=== PATIENT | male | born 1970 | race Caucasian/White ===

== ENCOUNTER 2019-11-03 13:27 | Outpatient (CLI) | payer OTHER, SELFPAY ==
--- NOTE | 2019-11-03 13:29 | ECG_ITS ---
Measurements Intervals [place] Rate: 49 P: 30 UT: 167 QRS: 0 QRSD: 98 T: 1 QT: 431 QTc: 391 Interpretive Statements SINUS BRADYCARDIA ABNORMAL ECG Electronically Signed On 11-03-2019 15:46:22 CDT by Martín Liu D.O.
[2019-11-03 14:41] LABS: Blood Urea Nitrogen 17 mg/dL (9-20); Carbon Dioxide 27 mmol/L (22-30); Chloride 106 mmol/L (98-107); Estimated Glomerular Filt Rate > 60; Glucose 114 mg/dL (75-110); Potassium 4.1 mmol/L (3.4-5.0); Sodium 139 mmol/L (137-145)
== END 2019-11-03 13:28 | disposition home or self-care (01) ==
PROVIDERS: PCP Family Medicine; Visit Provider Nurse Practitioner Family
DX: R00.2 Palpitations (principal); R94.31 Abnormal electrocardiogram [ECG] [EKG]
CPT/HCPCS: 36415; 80048; 84443; 93005

== ENCOUNTER 2019-11-16 14:08 | Outpatient (CLI) | payer OTHER, SELFPAY ==
--- NOTE | 2019-11-21 12:13 | WPDHOLTEREM ---
Holter/Event Monitor Holter/Event Monitor Date of procedure: 11/16/19 Procedure Type: 24 hour holter monitor Indications: Bradycardia Conclusion: 1. 24 hour holter monitor on 11/16/19. 2. Underlying rhythm is sinus rhythm. HR range 44-105 bpm; average HR 61 bpm. 3. There are 13 premature supraventricular complexes. No supraventricular tachycardia. 4. There are 5 premature ventricular complexes. No ventricular tachycardia. 5. No sinoatrial or atrioventricular blocks. No significant pauses greater than 2 seconds. 6. Patient report chest tightness which demonstrate sinus rhythm at 76 bpm.
== END 2019-11-16 14:09 | disposition home or self-care (01) ==
PROVIDERS: PCP Family Medicine; Visit Provider Nurse Practitioner Family
DX: R00.1 Bradycardia, unspecified (principal)
CPT/HCPCS: 93225; 93226

== ENCOUNTER 2020-02-09 08:52 | Outpatient (CLI) | payer OTHER, SELFPAY ==
--- NOTE | ~2020-02-09 | US_ITS ---
EXAMINATION: US abdomen complete EXAM DATE: 02/09/2020 09:48 INDICATION: Shortness of breath and pain. TECHNIQUE: Multiple grayscale and Doppler images of the complete abdomen were obtained (by a technolo gist who performed the scan) and subsequently reviewed. There is no prior study for comparison. FINDINGS: The abdominal aorta is normal in caliber. Visualized portion IVC is patent. The pancreatic head a nd body are normal in appearance. The pancreatic tail is not visualized. The liver has normal echogenicity and contour. There are no focal liver lesions identified. There is no evidence of intrahepatic biliary duct dilation. Portal venous flow was seen in the hepatopedal , normal direction and has normal Doppler waveform. Common bile duct measures 3 mm, which is normal. The gallbladder wall is normal in thickness, with ex pected amount of distention. No sonographic evidence of pericholecystic fluid. There is no cholelit hiases. Technologist performing exam reports patient did not demonstrate sonographic Guerrero's sign. Please note that this sign is less reliable in patients who have received pain medication. Right kidney: There is normal contour and echogenicity. It measures 11.0 x 4.9 x 5.1 centimeters. There are no focal renal lesions identified. There is no hydronephrosis. Left kidney: There is normal contour and echogenicity. It measures 11.0 x 4.4 x 6.0 centimeters. T here are no focal renal lesions identified. There is no hydronephrosis. The spleen measures 12.1 centimeters and is morphologically normal. IMPRESSION: 1. Unremarkable complete abdominal ultrasound exam. Reviewed, dictated and finalized at location B.
== END 2020-02-09 08:53 | disposition home or self-care (01) ==
PROVIDERS: PCP Family Medicine; Visit Provider Nurse Practitioner Family
DX: K30 Functional dyspepsia (principal); R06.02 Shortness of breath; R10.9 Unspecified abdominal pain; R14.2 Eructation
CPT/HCPCS: 76700

== ENCOUNTER 2020-02-18 01:46 | Outpatient (CLI) | payer OTHER, SELFPAY ==
[2020-02-18 19:29] LABS: SARS-CoV-2 RNA PCR Negative
== END 2020-02-18 01:47 | disposition home or self-care (01) ==
LOC: ANHCOVIDDT 01:46
PROVIDERS: PCP Family Medicine; Visit Provider Internal Medicine Gastroenterology
DX: Z01.812 Encounter for preprocedural laboratory examination (principal); Z11.59 Encounter for screening for other viral diseases
CPT/HCPCS: 87635; C9803; U0003

== ENCOUNTER 2020-02-21 00:53 | Day surgery (SDC) | payer OTHER, SELFPAY ==
[2020-02-13 10:12] VITALS: BMI 25.2
[2020-02-21 07:22] VITALS: BP 136/88; PULSE 84; RESP 17; TEMP 36.9; O2SAT 100; BMI 24.5
[2020-02-21] MEDS: LACTATED RINGERS 1,000 ML 150 ML IV CONT (07:28)
--- NOTE | 2020-02-21 08:08 | P.PNAN_ITS ---
Anes - Initial Pre Proc Eval Procedure: Operation Date: 02/21/20 08:30 Proposed Procedures p Esophagogastroduodenoscopy & Screening Colonoscopy - Michael Ortez MD Date/Time: 02/21/20 08:08 Surgeon: Michael Wood MD Pre Op Diagnosis: Gerd/ Neoplasm Screening Patient Data Age: 49 Gender: M Height: 5 ft 11 in Weight: 79.9 kg Last Vital Signs Temp 98.4 F 02/21/20 07:22 Pulse 84 02/21/20 07:22 Resp 17 02/21/20 07:22 BP 136/88 02/21/20 07:22 Pulse Ox 100 02/21/20 07:22 Allergies Allergy/AdvReac Type Severity Reaction Status Date / Time ranitidine [From Zantac] Allergy Intermediate Rash Verified 02/21/20 07:21 sulfamethoxazole AdvReac Intermediate facial Verified 02/21/20 07:21 [From Bactrim] swelling trimethoprim [From Bactrim] AdvReac Intermediate facial Verified 02/21/20 07:21 swelling Home Medications Medication Instructions Recorded Confirmed Type omeprazole 40 mg capsule,delayed 40 mg PO DAILY #30 cap 01/10/20 02/21/20 Rx release Patient hx anesthesia problems: none Family hx anesthesia problems: none PMFSH Past Medical History Medical History (Updated 02/21/20 @ 08:08 by Tan Swartz MD) Colon cancer screening GERD without esophagitis Social History Social History Smoking status: Never smoker Alcohol intake: current Anes - Eval Final PreProcedure Day of Procedure 02/21/20 08:08 Patient weight: normal Heart: regular rate and rhythm Lungs: clear to auscultation Airway: Mallampati scale Last oral intake: >/= 8 hours ASA classification: II Emergent: no Anesthetic plan: proceed Anesthesia type and monitoring: general GIVS and standard monitoring Informed Consent: The patient's anesthetic plan and its attendant risks and benefits were discussed with the patient/family/POA. Questions were solicited and answers provided to the satisfaction of the patient/family/POA.
--- NOTE | 2020-02-21 08:40 | PM.HPGS ---
History of Present Illness History of Present Illness Consent: Risks, benefits, and alternatives have been discussed and questions answered. Patient agrees to proceed with procedure. Chief complaint: Gerd/ Neoplasm Screening Narrative: Amauri Santos is a 49 year old male with non-cardiac chest pain better with ppi, also here for screening colonoscopy Review of Systems Constitutional: Constitutional: Denies headache(s) and Denies weakness Eyes: Eyes: Denies blurry vision ENT: Reports Normal hearing present, Denies headache(s) and Denies neck pain Cardiovascular: Cardiovascular: Denies chest pain and Denies dyspnea Respiratory: Respiratory: Denies dyspnea Gastrointestinal: Gastrointestinal: Reports no additional gastrointestinal complaints Genitourinary: Genitourinary: Denies dysuria Musculoskeletal: Musculoskeletal: Denies neck pain Integumentary/Breasts: Skin/Breast: Denies dry skin Neurologic: Reports Normal hearing present, Denies headache(s) and Denies weakness Psychiatric: Psychiatric: Denies anxiety Endocrine: Endocrine: Denies change in body appearance Hematologic/Lymphatic: Hematologic/Lymphatic: Denies easy bleeding Allergic/Immunologic: Allergic/Immunologic: Denies urticaria PMFSH Past Medical History Medical History (Updated 02/21/20 @ 08:08 by Tan Swartz MD) Colon cancer screening GERD without esophagitis Social History Social History Smoking status: Never smoker Alcohol intake: current Meds Home Medications and Allergies Home Medications Medication Instructions Recorded Confirmed Type omeprazole 40 mg capsule,delayed 40 mg PO DAILY #30 cap 01/10/20 02/21/20 Rx release Allergies Allergy/AdvReac Type Severity Reaction Status Date / Time ranitidine [From Zantac] Allergy Intermediate Rash Verified 02/21/20 07:21 sulfamethoxazole AdvReac Intermediate facial Verified 02/21/20 07:21 [From Bactrim] swelling trimethoprim [From Bactrim] AdvReac Intermediate facial Verified 02/21/20 07:21 swelling Vital Signs Vital Signs - 24 hr 02/21/20 07:22 Temperature 98.4 F Pulse Rate 84 Respiratory Rate 17 Blood Pressure 136/88 Pulse Oximetry 100 Exam Const: General: comfortable and no acute distress HENMT: General nose exam: Normal nares present Eyes: General: appearance normal, both eyes and all related structures Neck: Neck: no JVD Resp: Auscultation: clear to auscultation bilaterally Cardio: Rate: regular rate Rhythm: regular rhythm GI: Inspection: non-distended GI Palp: Yes Soft to palpation Skin: General skin exam: normal color Neuro: General: gait normal Speech: normal speech Extrem: General: normal to inspection Psych: Mental Status: mental status grossly normal Assessment and Plan Assessment and plan (1) GERD (gastroesophageal reflux disease): Qualifiers: Esophagitis presence: esophagitis presence not specified Qualified Code(s): K21.9 - Gastro-esophageal reflux disease without esophagitis Code(s): K21.9 - Gastro-esophageal reflux disease without esophagitis Status: Acute Assessment and Plan: will proceed with egd and bx (2) Chest tightness: Code(s): R07.89 - Other chest pain Status: Acute (3) Colon cancer screening: Code(s): Z12.11 - Encounter for screening for malignant neoplasm of colon Status: Acute Assessment and Plan: colonoscopy
[2020-02-21 09:16] VITALS: BP 112/64; PULSE 69; RESP 15; O2SAT 99
[2020-02-21 09:26] VITALS: BP 111/67; PULSE 65; RESP 15; O2SAT 100
[2020-02-21 09:36] VITALS: BP 128/81; PULSE 74; RESP 22; O2SAT 100
== END 2020-02-21 09:50 | disposition home or self-care (01) ==
PROVIDERS: PCP Family Medicine; Visit Provider Internal Medicine Gastroenterology
PROC: 0DJ08ZZ Inspection of Upper Intestinal Tract, Via Natural or Artificial Opening Endoscopic (ICD-10-PCS; CPT 43235; principal; 2020-02-21 08:30)
DX: Z12.11 Encounter for screening for malignant neoplasm of colon (principal); D12.0 Benign neoplasm of cecum; D12.5 Benign neoplasm of sigmoid colon; K64.8 Other hemorrhoids; K21.9 Gastro-esophageal reflux disease without esophagitis; K29.50 Unspecified chronic gastritis without bleeding; Z79.899 Other long term (current) drug therapy; Z88.2 Allergy status to sulfonamides; Z88.1 Allergy status to other antibiotic agents
CPT/HCPCS: 45385; 43239; 88305; J2001; J2704; J7120

== ENCOUNTER 2020-04-19 09:03 | Outpatient (NON) | payer OTHER, SELFPAY ==
[2020-04-19 20:47] LABS: SARS-CoV-2 RNA PCR Negative
== END 2020-04-19 09:04 ==
PROVIDERS: PCP Family Medicine; Visit Provider Nurse Practitioner Family
DX: R53.83 Other fatigue (principal); Z20.828 Contact with and (suspected) exposure to other viral communicable diseases
CPT/HCPCS: 87635; C9803; U0003

== ENCOUNTER 2020-04-21 08:36 | Outpatient (CLI) | payer OTHER, SELFPAY ==
[2020-04-21 08:59] LABS: Basophils Percent Auto 0.8 % (0.2-1.2); Eosinophils Absolute Auto 0.1 K/mm3 (0-0.3); Eosinophils Percent Auto 3.1 % (0-4.4); Hematocrit 47.5 % (42.0-52.0); Hemoglobin 16.2 g/dL (14.0-18.0); Mean Corpuscular HGB Conc 34.1 g/dl (32-36); Mean Corpuscular Hemoglobin 29.7 pg (26-34); Mean Corpuscular Volume 87.2 fl (80-100); Mean Platelet Volume 10.9 fl (7.4-10.4); Monocytes Absolute Auto 0.4 K/mm3 (0.1-0.6); Monocytes Percent Auto 9.8 % (2.6-8.5); Neutrophils Absolute Auto 2.1 K/mm3 (1.3-6.7); Neutrophils Percent Auto 55.3 % (45.5-73.1); Platelet Count Result 144 k/mm3 (150-375); Red Blood Count 5.45 M/mm3 (4.6-6.20); Red Cell Distribution Width 12.4 % (11.5-14.5); White Blood Count 3.9 K/mm3 (4.5-10.0)
[2020-04-21 09:10] LABS: Anion Gap 5 mmol/L (8-16); Blood Urea Nitrogen 12 mg/dL (9-20); Calcium 8.9 mg/dL (8.4-10.2); Carbon Dioxide 30 mmol/L (22-30); Chloride 103 mmol/L (98-107); Estimated Glomerular Filt Rate > 60; Glucose 108 mg/dL (75-110); Potassium 4.2 mmol/L (3.4-5.0); Sodium 138 mmol/L (137-145)
== END 2020-04-21 08:37 | disposition home or self-care (01) ==
LOC: ANHLAB 08:38
PROVIDERS: PCP Family Medicine; Visit Provider Nurse Practitioner Family
DX: R53.83 Other fatigue (principal)
CPT/HCPCS: 36415; 80048; 84443; 85025

== ENCOUNTER 2020-04-27 09:25 | Outpatient (CLI) | payer OTHER, SELFPAY ==
--- NOTE | ~2020-04-27 | NM_ITS ---
EXAMINATION: NM hepatobiliary w pharm EXAM DATE: 04/27/2020 12:47 INDICATION: R14.0 - Abdominal distension (gaseous) TECHNIQUE: 4.8 mCi Tc-99m mebrofenin (Choletec) was administered intravenously. Scintigraphic image s of the abdomen were obtained for one hour. At the 1 hour time point, 1.6 mcg sincalide (Kinevac) wa s administered by slow intravenous infusion, and imaging was continued for 30 minutes. Gallbladder ej ection fraction was calculated by the technologist. There is no prior study for comparison. FINDINGS: There is normal clearance of radiotracer from the blood pool. There is homogeneous tracer u ptake by the liver. Activity progresses to the gallbladder and bowel. The gallbladder ejection fract ion (GBEF) is 58 % (most patients with gallbladder dysfunction have GBEF < 35%, but there is overlap with the normal range of 10-90%). IMPRESSION: Gallbladder ejection fraction 58%, within normal range. Reviewed, dictated and finalized at location B. INSPECTOR
== END 2020-04-27 09:26 | disposition home or self-care (01) ==
PROVIDERS: PCP Family Medicine; Visit Provider Nurse Practitioner Family
DX: R14.0 Abdominal distension (gaseous) (principal); R14.2 Eructation
CPT/HCPCS: 78227; A9537; J2805

== ENCOUNTER 2020-05-04 10:47 | Outpatient (CLI) | payer OTHER, SELFPAY ==
[2020-05-04 11:25] LABS: Basophils Absolute Auto 0.1 K/mm3 (0.0-0.1); Basophils Percent Auto 1.1 % (0.2-1.2); Eosinophils Absolute Auto 0.1 K/mm3 (0-0.3); Eosinophils Percent Auto 2.5 % (0-4.4); Hematocrit 48.1 % (42.0-52.0); Hemoglobin 16.3 g/dL (14.0-18.0); Immature Granulocyte Absolute 0.02 K/mm3 (0.00-0.031); Immature Granulocyte Percent A 0.4 % (0-0.5); Immature Platelet Fraction Pct 8.5 % (0.9-11.2); Lymphocytes Percent Auto 29.4 % (18.3-44.2); Mean Corpuscular HGB Conc 33.9 g/dl (32-36); Mean Corpuscular Hemoglobin 29.5 pg (26-34); Mean Platelet Volume 11.2 fl (7.4-10.4); Monocytes Absolute Auto 0.5 K/mm3 (0.1-0.6); Monocytes Percent Auto 9.9 % (2.6-8.5); Neutrophils Absolute Auto 2.7 K/mm3 (1.3-6.7); Neutrophils Percent Auto 56.7 % (45.5-73.1); Platelet Count Result 150 k/mm3 (150-375); Red Blood Count 5.53 M/mm3 (4.6-6.20); Red Cell Distribution Width 12.1 % (11.5-14.5); White Blood Count 4.8 K/mm3 (4.5-10.0)
== END 2020-05-04 10:48 | disposition home or self-care (01) ==
LOC: ANHLAB 10:49
PROVIDERS: PCP Family Medicine; Visit Provider Nurse Practitioner Family
DX: D72.819 Decreased white blood cell count, unspecified (principal)
CPT/HCPCS: 36415; 85025; 85055

== ENCOUNTER → 2020-06-05 10:26 | Outpatient (CLI) | payer OTHER, SELFPAY ==
--- NOTE | ~2020-06-05 | XR_ITS ---
EXAMINATION: XR chest 2V 06/05/2020 10:37 INDICATION: Pleural effusion. PROCEDURE: 2 view chest COMPARISON: No prior studies for comparison. FINDINGS: The lungs are clear. The cardiomediastinal silhouette is within normal limits. There are no pleural effusions. There is no pneumothorax suspected. IMPRESSION: 1: NO ACUTE CARDIOPULMONARY DISEASE. Reviewed, dictated and finalized at location A. GENCY MEDICINE SPECIALIST
== END ==
PROVIDERS: PCP Family Medicine; Visit Provider Nurse Practitioner Family
DX: J90 Pleural effusion, not elsewhere classified (principal)
CPT/HCPCS: 71046

== ENCOUNTER 2020-06-28 07:30 | Outpatient (CLI) | payer OTHER, SELFPAY ==
--- NOTE | 2020-06-28 08:08 | EST_ITS ---
Patient Info Name: Amauri Santos Age: 49 years : 1970 Gender: Male Ht: 71 in Wt: 185 lbs BSA: 2.06 m2 Exam Date: 06/28/2020 9:04 AM Exam Location: [facility] Stress Patient Status: Outpatient Admit Date: 06/28/2020 Staff Ordering Physician: Ave Arevalo NP Attending Provider: Ave Arevalo NP Exercise Technologist: Aurea Amaral RDCS Exercise Physician: Martín Liu DO Exam Type: CA stress test treadmill Study Info A treadmill exercise stress test was performed. Summary 1. 1. Negative [place] exercise stress test for ischemic ST changes by ECG criteria. 2. 2. Good functional capacity, achieving 12 METs of workload. 3. 3. Hypertensive response to exercise. 4. 4. Appropriate HR response to exercise. 5. 5. Appropriate HR recovery at 1 minute post exercise. 6. 6. No imaging with stress testing. 7. 7. Patient informed of the above results. Protocol: [place] Stress ECG Details Stage: REST Duration (min): 1 min : 53 sec Speed (mph): 0.0 Grade (%): 0 HR (bpm): 58 SBP (mmHg): 138 DBP (mmHg): 93 METS: --- Stage: REST Duration (min): 3 min : 31 sec Speed (mph): 0.0 Grade (%): 0 HR (bpm): 61 SBP (mmHg): 138 DBP (mmHg): 93 METS: --- Stage: STAGE 1 Duration (min): 1 min : 0 sec Speed (mph): 1.7 Grade (%): 10 HR (bpm): 79 SBP (mmHg): 138 DBP (mmHg): 93 METS: --- Stage: STAGE 1 Duration (min): 2 min : 0 sec Speed (mph): 1.7 Grade (%): 10 HR (bpm): 81 SBP (mmHg): 138 DBP (mmHg): 93 METS: --- Stage: STAGE 1 Duration (min): 3 min : 0 sec Speed (mph): 1.7 Grade (%): 10 HR (bpm): 83 SBP (mmHg): 164 DBP (mmHg): 79 METS: --- Stage: STAGE 2 Duration (min): 1 min : 0 sec Speed (mph): 2.5 Grade (%): 12 HR (bpm): 94 SBP (mmHg): 164 DBP (mmHg): 79 METS: --- Stage: STAGE 2 Duration (min): 2 min : 0 sec Speed (mph): 2.5 Grade (%): 12 HR (bpm): 101 SBP (mmHg): 163 DBP (mmHg): 80 METS: --- Stage: STAGE 2 Duration (min): 3 min : 0 sec Speed (mph): 2.5 Grade (%): 12 HR (bpm): 100 SBP (mmHg): 163 DBP (mmHg): 80 METS: --- Stage: STAGE 3 Duration (min): 1 min : 0 sec Speed (mph): 3.4 Grade (%): 14 HR (bpm): 107 SBP (mmHg): 174 DBP (mmHg): 82 METS: --- Stage: STAGE 3 Duration (min): 2 min : 0 sec Speed (mph): 3.4 Grade (%): 14 HR (bpm): 117 SBP (mmHg): 174 DBP (mmHg): 82 METS: --- Stage: STAGE 3 Duration (min): 3 min : 0 sec Speed (mph): 3.4 Grade (%): 14 HR (bpm): 124 SBP (mmHg): 205 DBP (mmHg): 80 METS: --- Stage: STAGE 4 Duration (min): 1 min : 0 sec Speed (mph): 4.2 Grade (%): 16 HR (bpm): 150 SBP (mmHg): 205 DBP (mmHg): 80 METS: --- Stage: STAGE 4 Duration (min): 2 min : 0 sec Speed (mph): 4.2
--- NOTE | 2020-06-28 08:08 | ECHO_ITS ---
Patient Info Name: Amauri Santos Age: 49 years : 1970 Gender: Male Ht: 71 in Wt: 185 lbs BSA: 2.06 m2 HR: 51 bpm BP: 146 / 90 mmHg Technical Quality: Good Exam Date: 06/28/2020 8:26 AM Exam Location: [facility] Patient Status: Outpatient Admit Date: 06/28/2020 Staff Ordering Physician: Ave Arevalo NP [employer] Sales Representative: Ramón Guerrero RDCS, RT Attending Provider: Ave Arevalo NP Referring Physician: Irina EVANS; Exam Type: CA echo doppler color flow Study Info Indications R00.1 - Bradycardia, unspecified Complete two-dimensional, color flow and Doppler transthoracic echocardiogram is performed. Strain analysis performed. Summary 1. Complete two-dimensional, color flow and Doppler transthoracic echocardiogram is performed. 2. Left ventricular chamber dimension is normal. 3. Left ventricular systolic function is normal, estimated at 55-60%. 4. The left ventricular diastolic function is normal. 5. E/e' 9 is minimally elevated. 6. Global longitudinal strain is normal at -18.5%. 7. There is trace tricuspid valve regurgitation. Left Ventricle E/e' 9 is minimally elevated. Global longitudinal strain is normal at -18.5%. Left ventricular chamber dimension is normal. Left ventricular systolic function is normal, estimated at 55-60%. The left ventricular diastolic function is normal. Right Ventricle Right ventricular chamber dimension is normal. Right ventricular systolic function is normal. Left Atria Left atrial chamber dimension is normal. Right Atria Right atrial chamber dimension is normal. Aortic Valve The aortic valve is trileaflet. There is no aortic valve stenosis. There is no aortic valve regurgitation. Pulmonic Valve There is no pulmonic regurgitation. Mitral Valve There is no mitral valve stenosis. There is no mitral valve regurgitation. Tricuspid Valve There is trace tricuspid valve regurgitation. RVSP is not calculated due to an inadequate TR jet. Pericardium/Pleural There is no pericardial effusion. Inferior Vena Cava Normal inferior vena cava with >50% collapse upon inspiration consistent with normal right atrial pressure, 5 mmHg. Aorta The aortic root size at the sinus of Valsalva is normal. Left Ventricular Outflow Tract Name Value Normal LVOT 2D LVOT Diameter 2.5 cm LVOT Doppler LVOT Peak Gradient 3 mmHg LVOT Mean Gradient 2 mmHg LVOT VTI 19 cm LVOT VTI/AV VTI Ratio 0.9 LVOT Stroke Volume 92 ml LVOT CO 4.8 l/min LVOT CI 2.3 l/min/m2 Mitral Valve Name Value Normal MV Doppler MV Decel Bond 287 cm/s2 MV PHT
== END 2020-06-28 07:31 | disposition home or self-care (01) ==
PROVIDERS: PCP Family Medicine; Visit Provider Nurse Practitioner Family
DX: R94.31 Abnormal electrocardiogram [ECG] [EKG] (principal); R06.02 Shortness of breath
CPT/HCPCS: 93017; 93306

== ENCOUNTER 2021-06-07 06:36 | Emergency (ER) | payer OTHER, SELFPAY ==
--- NOTE | ~2021-06-07 | XR_ITS ---
EXAMINATION: XR chest 2V DATE: 06/07/2021 07:42 INDICATION: Chest pain TECHNIQUE: PA and lateral views of the chest are obtained. COMPARISON: 06/05/2020 FINDINGS: The lungs are free of acute opacities. There is no pleural effusion or pneumothorax. The ca rdiomediastinal silhouette is normal. There is chronic mild anterior wedging of lower thoracic verteb ral bodies, likely physiologic. IMPRESSION: 1. No acute cardiopulmonary abnormality. Reviewed, dictated and finalized at location A. [facility] RO[facility]
--- NOTE | 2021-06-07 06:38 | ECG_ITS ---
Measurements Intervals [place] Rate: 65 P: 40 CO: 158 QRS: -4 QRSD: 97 T: 5 QT: 382 QTc: 399 Interpretive Statements SINUS RHYTHM NORMAL ECG Electronically Signed On 06-07-2021 7:44:28 VACUUM CLEANER MECHANIC by Martín Liu D.O.
[2021-06-07 06:49] VITALS: BP 162/85; PULSE 77; RESP 20; TEMP 37; O2SAT 97
[2021-06-07 06:57] LABS: Eosinophils Absolute Auto 0.2 K/mm3 (0-0.3); Eosinophils Percent Auto 4.6 % (0-4.4); Hematocrit 44.9 % (42.0-52.0); Immature Granulocyte Absolute 0.01 K/mm3 (0.00-0.031); Immature Granulocyte Percent A 0.3 % (0-0.5); Immature Platelet Fraction Pct 8.1 % (0.9-11.2); Lymphocytes Absolute Auto 0.85 K/mm3 (0.9-3.2); Lymphocytes Percent Auto 21.7 % (18.3-44.2); Mean Corpuscular HGB Conc 33.4 g/dl (32-36); Mean Corpuscular Hemoglobin 29.9 pg (26-34); Mean Corpuscular Volume 89.4 fl (80-100); Mean Platelet Volume 11.1 fl (7.4-10.4); Monocytes Absolute Auto 0.6 K/mm3 (0.1-0.6); Monocytes Percent Auto 15.1 % (2.6-8.5); Neutrophils Absolute Auto 2.2 K/mm3 (1.3-6.7); Neutrophils Percent Auto 57.3 % (45.5-73.1); Platelet Count Result 137 k/mm3 (150-375); Red Blood Count 5.02 M/mm3 (4.6-6.20); Red Cell Distribution Width 13.1 % (11.5-14.5); White Blood Count 3.9 K/mm3 (4.5-10.0)
[2021-06-07 07:08] LABS: Alanine Aminotransferase 24 U/L (4-50); Albumin Level 4.3 g/dL (3.5-5.1); Alkaline Phosphatase 63 U/L (38-126); Anion Gap 6 mmol/L (8-16); Aspartate Amino Transferase 28 U/L (17-59); Bilirubin,Total 0.5 mg/dL (0.2-1.3); Blood Urea Nitrogen 12 mg/dL (9-20); Calcium 8.7 mg/dL (8.4-10.2); Carbon Dioxide 27 mmol/L (22-30); Chloride 100 mmol/L (98-107); Estimated Glomerular Filt Rate > 60; Glucose 109 mg/dL (65-110); Lipase 111 U/L (23-300); Potassium 3.8 mmol/L (3.4-5.0); Sodium 133 mmol/L (137-145)
[2021-06-07 07:14] LABS: INR 1.1; Prothrombin Time 13.9 Seconds (11.1-14.7)
[2021-06-07 07:15] LABS: Partial Thromboplastin Time 29.2 SECONDS (22.3-36.8)
[2021-06-07 07:19] LABS: Troponin I < 0.012 ng/mL (0.000-0.034)
[2021-06-07 08:47] VITALS: BP 142/87; PULSE 60; RESP 16; O2SAT 100
--- NOTE | 2021-06-07 08:49 | ED.CHESTPAIN ---
HPI - Chest Pain General Chief Complaint: Chest Pain Stated Complaint: CP, chest tightness Time Seen by Provider: 06/07/21 08:12 Source: patient and RN notes reviewed Mode of arrival: ambulatory Limitations: no limitations History of Present Illness HPI narrative: This is a 50 year old male who presents for evaluation of left chest tightness. Patient woke up this morning at 4 am with tightness to left chest and left shoulder. He has not noticed any exacerbating factors. He took ibuprofen before coming to ER so he states his pain is minimal now. He thinks he may have had mild sob and nausea. He denies fever, chills, cough, dizziness or diaphoresis. He thinks this may be because he receive his second dose of his covid vaccination 2 days ago. He also states he was COVID + a few weeks ago as well. He denies heart disease or history of PE. He takes testosterone injections every 2 weeks. Related Data Allergies Allergy/AdvReac Type Severity Reaction Status Date / Time ranitidine [From Zantac] Allergy Intermediate Rash Verified 02/20/21 08:03 sulfamethoxazole AdvReac Intermediate facial Verified 02/20/21 08:03 [From Bactrim] swelling trimethoprim [From Bactrim] AdvReac Intermediate facial Verified 02/20/21 08:03 swelling Review of Systems Review of Systems: All systems reviewed & are unremarkable except as noted in HPI and below PMFSH Past Medical History Medical History (Updated 06/07/21 @ 10:58 by Jaqueline Craig MD) Adenomatous colon polyp Colon cancer screening Gastritis GERD without esophagitis Surgical History Surgical History (Updated 06/07/21 @ 08:52 by Jaqueline Craig MD) No pertinent past surgical history Family History Family History Father Hypertension Social History Social History (Updated 02/20/21 @ 09:06 by Dann Vincent) Smoking status: Never smoker Alcohol intake: current Drinks per week: 4 Substance use: never Substance use type: does not use Additional living arrangements comments: and kids Additional occupation/education comments: [employer] Gender identity (if verbalized by the patient): Male Sexual Orientation (if Verbalized by the Patient): Straight or Heterosexual Spiritual care concerns: No Agree to blood products: Yes Exam Const: General: no acute distress and alert Orientation/consciousness: patient oriented x3 HENMT: Head: normocephalic and atraumatic Face and sinus: face symmetric Mouth: Yes Normal oral and palatal mucosa present, Yes lip normal, Yes oropharynx normal and Yes moist mucous membranes Eyes: EOM: EOMs intact bilaterally Chest: Chest palpation & inspection: normal inspection of the chest and no tenderness Resp: Effort & Inspection: normal respiratory effort and no retractions Auscultation: clear to auscultation bilaterally Cardio: Rate: regular rate Rhythm: regular rhythm Heart sounds: no murmurs GI: GI Palp: Yes Soft to palpation, No Tenderness to palpation present (GI) and No Guarding due to palpation present (GI) Auscultation: normal bowel sounds Skin: General skin exam: normal color Rashes: no rashes Neuro: General: patient oriented x3, moves all extremities and CN's II-XI intact bilaterally Extrem: General: normal to inspection Psych: Mental Status: mental status grossly normal Affect: normal affect Course Reevaluation(s) Reevaluation #1: Patient has no complaints. Evaluation has been unremarkable. Tightness likely due to musculoskeletal. He is stable for discharge home. Date: 06/07/21 Time: 10:55 Vital Signs Vital signs: Vital Signs Temperature 98.6 F 06/07/21 06:49 Pulse Rate 77 06/07/21 06:49 Respiratory Rate 20 06/07/21 06:49 Blood Pressure 162/85 H 06/07/21 06:49 Pulse Oximetry 97 06/07/21 06:49 Temperature 98.6 F 06/07/21 06:49 Pulse Rate 61 06/07/21 11:14 Respiratory
[2021-06-07 09:34] LABS: D Dimer 0.27 ug/mL (<0.48)
[2021-06-07 10:34] VITALS: BP 131/90; PULSE 60; RESP 16; O2SAT 100
[2021-06-07 10:38] LABS: Troponin I < 0.012 ng/mL (0.000-0.034)
[2021-06-07 11:14] VITALS: BP 130/84; PULSE 61; RESP 16; O2SAT 99
== END 2021-06-07 11:15 | disposition home or self-care (01) ==
PROVIDERS: Emergency Medicine; Emergency Provider General Practice; PCP Family Medicine
DX: R07.89 Other chest pain (principal)
CPT/HCPCS: 36415; 71046; 80053; 83690; 84484; 85025; 85055; 85380; 85610; 85730; 93005; 99284

== ENCOUNTER → 2022-01-07 10:21 | Outpatient (CLI) | payer OTHER, SELFPAY ==
--- NOTE | ~2022-01-07 | XR_ITS ---
EXAM: XR lumbar spine 2-3V DATE: 01/07/2022 10:59 HISTORY: low back pain with radiation down rt . COMPARISON: None available. FINDINGS: 5 nonrib-bearing lumbar-type vertebral bodies. Pedicles intact. Normal vertebral body alig nment. Vertebral body heights preserved. Mild L4-5 and moderate L5-S1 disc space narrowing. Multileve l facet hypertrophy and sclerosis. No fracture or dislocation. IMPRESSION: Lower lumbar facet arthropathy and degenerative disc disease. Reviewed, dictated and finalized at location K.
== END ==
PROVIDERS: PCP Family Medicine; Visit Provider Nurse Practitioner Family
DX: M47.817 Spondylosis without myelopathy or radiculopathy, lumbosacral region (principal)
CPT/HCPCS: 72100

== ENCOUNTER → 2022-04-11 07:08 | Outpatient (CLI) | payer OTHER, SELFPAY ==
--- NOTE | ~2022-04-11 | MR_ITS ---
EXAMINATION: MR lumbar spine wo con DATE: 04/11/2022 07:36 INDICATION: Low back pain. TECHNIQUE: Magnetic resonance imaging (MRI) of the lumbar spine was performed without intravenous con trast. Sequences included sagittal T2-weighted FSE, sagittal T2-weighted FS FSE, sagittal T1-weighted FSE, and axial T2-weighted FSE. COMPARISON: Lumbar spine radiographs 01/07/2022 FINDINGS: There is 7 degrees levocurvature of lumbar spine. There is 3 mm anterolisthesis of L5 on S1 . Vertebral body heights are normal. There is mildly decreased disc height at L5-S1. The distal spina l cord signal intensity is normal. The conus medullaris is at L1. The following disc levels are speci fically discussed: L1-L2: The disc does not extend beyond the endplate margin. There is mild bilateral facet joint osteo arthritis. There is no neural foraminal stenosis. There is no central canal stenosis. L2-L3: The disc does not extend beyond the endplate margin. There is mild bilateral facet joint osteo arthritis. There is no neural foraminal stenosis. There is no central canal stenosis. L3-L4: There is a left foraminal protrusion with annular fissure. There is no facet joint osteoarthri tis. There is mild left neural foraminal stenosis. There is no central canal stenosis. L4-L5: The disc is bulging and has an annular fissure. There is mild bilateral facet joint osteoarthr itis. There is mild bilateral neural foraminal stenosis. There is mild central canal stenosis. L5-S1: The disc is bulging with superimposed large central extrusion. There is mild right and moderat e left facet joint osteoarthritis. There is mild left neural foraminal stenosis. There is severe cent ral canal stenosis. IMPRESSION: 1. Large extrusion at L5-S1 with severe central canal stenosis. Reviewed, dictated and finalized at location A.
== END ==
PROVIDERS: PCP Family Medicine; Visit Provider Nurse Practitioner Family
DX: M51.27 Other intervertebral disc displacement, lumbosacral region (principal)
CPT/HCPCS: 72148

== ENCOUNTER → 2022-07-29 07:42 | Outpatient (CLI) | payer OTHER, SELFPAY ==
--- NOTE | ~2022-07-29 | US_ITS ---
EXAMINATION: US soft tissue chest DATE: 07/29/2022 08:08 INDICATION: Right chest lump. TECHNIQUE: Multiple grayscale and Doppler ultrasound images of the chest were obtained. COMPARISON: None FINDINGS: There is a 2.7 x 1.0 cm subcutaneous hyperechoic mass in right chest. IMPRESSION: 1. 2.7 x 1.0 cm subcutaneous mass in right chest, most likely a lipoma. Reviewed, dictated and finalized at location A. SROOM MONITOR
== END ==
PROVIDERS: PCP Family Medicine; Visit Provider Nurse Practitioner Family
DX: B02.9 Zoster without complications (principal); M79.89 Other specified soft tissue disorders; R10.9 Unspecified abdominal pain; R22.2 Localized swelling, mass and lump, trunk
CPT/HCPCS: 76604

== ENCOUNTER 2022-08-06 15:41 | Outpatient (CLI) | payer OTHER, SELFPAY ==
[2022-08-06 15:52] LABS: Basophils Absolute Auto 0.1 K/mm3 (0.0-0.1); Basophils Percent Auto 0.9 % (0.2-1.2); Eosinophils Absolute Auto 0.2 K/mm3 (0-0.3); Eosinophils Percent Auto 2.9 % (0-4.4); Hematocrit 43.7 % (42.0-52.0); Immature Granulocyte Absolute 0.01 K/mm3 (0.00-0.031); Immature Granulocyte Percent A 0.2 % (0-0.5); Lymphocytes Absolute Auto 1.49 K/mm3 (0.9-3.2); Lymphocytes Percent Auto 25.5 % (18.3-44.2); Mean Corpuscular HGB Conc 34.3 g/dl (32-36); Mean Corpuscular Hemoglobin 30.7 pg (26-34); Mean Corpuscular Volume 89.5 fl (80-100); Mean Platelet Volume 10.9 fl (7.4-10.4); Monocytes Absolute Auto 0.6 K/mm3 (0.1-0.6); Monocytes Percent Auto 10.6 % (2.6-8.5); Neutrophils Absolute Auto 3.5 K/mm3 (1.3-6.7); Neutrophils Percent Auto 59.9 % (45.5-73.1); Platelet Count Result 154 k/mm3 (150-375); Red Blood Count 4.88 M/mm3 (4.6-6.20); Red Cell Distribution Width 13.2 % (11.5-14.5); White Blood Count 5.9 K/mm3 (4.5-10.0)
[2022-08-06 16:52] LABS: Iron 71 ug/dL (49-181)
[2022-08-06 17:05] LABS: Percent Iron Saturation 17 % (20-50)
[2022-08-06 19:00] LABS: Alanine Aminotransferase 20 U/L (6-50); Albumin Level 4.4 g/dL (3.5-5.1); Alkaline Phosphatase 45 U/L (38-126); Anion Gap 6 mmol/L (8-16); Aspartate Amino Transferase 27 U/L (17-59); Bilirubin,Total 0.5 mg/dL (0.2-1.3); Blood Urea Nitrogen 13 mg/dL (9-20); Calcium 8.6 mg/dL (8.4-10.2); Carbon Dioxide 28 mmol/L (22-30); Chloride 104 mmol/L (98-107); Estimated Glomerular Filt Rate > 60; Glucose 83 mg/dL (65-110); Sodium 138 mmol/L (137-145)
[2022-08-06 20:06] LABS: Folic Acid 8.5 ng/mL (2.76->20)
[2022-08-12 13:21] LABS: Reference Lab Test Result Negative
== END 2022-08-06 15:42 | disposition home or self-care (01) ==
LOC: ANHLAB 15:41
PROVIDERS: PCP Family Medicine; Visit Provider Internal Medicine Hematology & Oncology
DX: D69.59 Other secondary thrombocytopenia (principal)
CPT/HCPCS: 36415; 80053; 82607; 82728; 82746; 83540; 83550; 85025; 86023

== ENCOUNTER 2022-08-13 09:34 | Outpatient (CLI) | payer OTHER, SELFPAY ==
--- NOTE | ~2022-08-13 | US_ITS ---
US abdomen complete EXAMINATION: US Abdomen Complete INDICATION: Thrombocytopenia. PROCEDURE: Realtime High Resolution abdomen ultrasound. COMPARISON: No prior studies for comparison FINDINGS: Gallbladder within normal limits. No gallstones, pericholecystic fluid, gallbladder wall t hickening or biliary dilatation. Common bile duct measures 2.6 mm. Liver echotexture within normal limits without focal mass. Pancreas within normal limits. Pancreati c tail is obscured by bowel gas. Spleen is unremarkeable. Renal echotexture is within normal limits bilaterally without hydronephrosis, contour deforming mass or renal stone. Right kidney measures 10.7 cm. Left kidney measures 10.8 cm. Visualized aspects of the aorta and IVC are within normal limits. Portal vein is patent. No sonograph ic Guerrero's sign indicated by the technologist. IMPRESSION: 1: Unremarkable abdominal ultrasound. Reviewed, dictated and finalized at location B. SHING FRAME RUNNER
== END 2022-08-13 09:35 | disposition home or self-care (01) ==
LOC: ANHIMG 09:34
PROVIDERS: PCP Family Medicine; Visit Provider Internal Medicine Hematology & Oncology
DX: D69.59 Other secondary thrombocytopenia (principal)
CPT/HCPCS: 76700

== ENCOUNTER 2023-03-04 13:46 | Outpatient (CLI) | payer OTHER, SELFPAY ==
[2023-03-04 13:57] LABS: Basophils Absolute Auto 0.1 K/mm3 (0.0-0.1); Basophils Percent Auto 0.9 % (0.2-1.2); Eosinophils Absolute Auto 0.2 K/mm3 (0-0.3); Hematocrit 45.3 % (42.0-52.0); Hemoglobin 15.4 g/dL (14.0-18.0); Immature Granulocyte Absolute 0.01 K/mm3 (0.00-0.031); Immature Granulocyte Percent A 0.2 % (0-0.5); Lymphocytes Percent Auto 21.1 % (18.3-44.2); Mean Corpuscular Hemoglobin 30.5 pg (26-34); Mean Corpuscular Volume 89.7 fl (80-100); Mean Platelet Volume 10.5 fl (7.4-10.4); Monocytes Absolute Auto 0.6 K/mm3 (0.1-0.6); Neutrophils Absolute Auto 3.6 K/mm3 (1.3-6.7); Neutrophils Percent Auto 63.8 % (45.5-73.1); Platelet Count Result 181 k/mm3 (150-375); Red Blood Count 5.05 M/mm3 (4.6-6.20); Red Cell Distribution Width 12.4 % (11.5-14.5); White Blood Count 5.7 K/mm3 (4.5-10.0)
== END 2023-03-04 13:47 | disposition home or self-care (01) ==
LOC: ANHLAB 13:47
PROVIDERS: PCP Family Medicine; Visit Provider Internal Medicine Hematology & Oncology
DX: D69.59 Other secondary thrombocytopenia (principal)
CPT/HCPCS: 36415; 85025

== ENCOUNTER 2023-09-09 05:53 | Day surgery (SDC) | payer OTHER, SELFPAY ==
[2023-08-26 13:34] VITALS: BMI 27.3
--- NOTE | 2023-09-08 17:43 | WPDANESEPPF ---
Anes - Initial Pre Proc Eval Procedure: Operation Date: 09/09/23 07:30 Proposed Procedures p Bilateral Upper and Lower Blepharoplasty with Fat Grafting - Luis Felipe Suarez MD Date/Time: 09/08/23 17:43 Surgeon: Luis Felipe Suarez MD Pre Op Diagnosis: Dermatochalasis Patient Data Age: 52 Gender: M Height: 1.8 m Weight: 89 kg Allergies Allergy/AdvReac Type Severity Reaction Status Date / Time ranitidine [From Zantac] Allergy Intermediate Rash Verified 09/09/23 06:16 sulfamethoxazole AdvReac Intermediate facial Verified 09/09/23 06:16 [From Bactrim] swelling trimethoprim [From Bactrim] AdvReac Intermediate facial Verified 09/09/23 06:16 swelling Home Medications Medication Instructions Recorded Confirmed Type omeprazole 20 mg tablet,delayed 20 mg PO DAILY 01/07/22 09/09/23 History release PT/INR testing monitor 09/18/22 09/09/23 History cholecalciferol (vitamin D3) 25 25 mcg PO DAILY 09/18/22 09/09/23 History mcg (1,000 unit) capsule ferrous sulfate 325 mg (65 mg 325 mg PO DAILY 09/18/22 09/09/23 History iron) tablet tadalafil 5 mg tablet 5 mg PO DAILY 09/18/22 09/09/23 History testosterone enanthate 50 mg/0.5 50 mg subcut WEEKLY 04/30/23 09/09/23 History mL subcutaneous auto-injector docusate sodium 100 mg capsule 100 mg PO DIRECTED 09/09/23 09/09/23 History (Colace) ondansetron HCl 4 mg tablet 4 mg PO DIRECTED PRN Nausea 09/09/23 09/09/23 History oxycodone-acetaminophen 5 mg-325 1 tablet PO DIRECTED 09/09/23 09/09/23 History mg tablet Patient hx anesthesia problems: none Family hx anesthesia problems: none Results Review: All pre-operative results and documents have been reviewed as part of the pre-operative evaluation. [facility] Past Medical History Medical History Adenomatous colon polyp BMI 27.0-27.9,adult Colon cancer screening Dyspepsia Gastritis GERD without esophagitis Surgical History Surgical History No pertinent past surgical history Family History Family History (Updated 07/16/23 @ 13:03 by YARA Blevins) Father Hypertension Mother No problems noted. Sibling Obesity Social History Social History (Updated 07/16/23 @ 13:04 by YARA Blevins) Smoking status: Never smoker Second hand tobacco smoke exposure: No Alcohol intake: current Drinks per week: 4 Alcohol use details: occassionally Substance use: never Substance use type: does not use Do You Feel Safe in your Home?: Yes Lack of Transportation: No Lack of Food: Never True Current Housing: I Have Housing Concerned About Future Housing: No Difficulty Paying Gas/Electric Bills: No Difficulty Paying for Meds: No Currently Unemployed: No Education: Bachelor's Degree Difficulty w/ Childcare or Family Care: No Living arrangements: with family Additional living arrangements comments: and kids Occupation/Education: occupation Additional occupation/education comments: [employer] Gender identity (if verbalized by the patient): Male Sexual Orientation (if Verbalized by the Patient): Straight or Heterosexual Spiritual care concerns: No Agree to blood products: Yes Anes - Eval Final PreProcedure Day of Procedure 09/08/23 17:43 Patient weight: overweight Heart: regular rate and rhythm Lungs: clear to auscultation Airway: Mallampati scale class II Neurological: alert and oriented Last oral intake: >/= 8 hours ASA classification: II Emergent: no Anesthetic plan: proceed Anesthesia type and monitoring: general ETT and standard monitoring Results Review: All pre-operative results and documents have been reviewed as part of the pre-operative evaluation. Informed Consent: The patient's anesthetic plan and its attendant risks and benefits were discussed with the patient/family/POA. Ques
[2023-09-09] VITALS (11 sets, daily range): BP systolic 144–173; BP diastolic 95–109; PULSE 62–82; RESP 10–20; TEMP 36.5–36.8; O2SAT 96–100; BMI 27.4
[2023-09-09] MEDS: LACTATED RINGERS 1,000 ML 30 ML IV CONT ×2 (06:55→10:00)
--- NOTE | 2023-09-09 07:04 | SUR.PREOP ---
DR MARTIN MARKED PT WITH SPOUSE IN ROOM
--- NOTE | 2023-09-09 07:21 | WPDHPUPDATE1 ---
History and Physical Update Update Date/Time: 09/09/23 07:21 History and Physical has been reviewed, including an updated exam of the patient. There are NO changes in the patient's condition. Risks, benefits, and alternatives have been discussed and questions answered. Patient agrees to proceed with procedure.
--- NOTE | 2023-09-09 07:21 | W.PM.PROC2 ---
Procedure Note - Detailed Date of Procedure 09/09/23 Pre-op Diagnosis Dermatochalasis Post-op Diagnosis Same Procedure Performed 1. Bilateral upper eyelid blepharoplasty 2. Bilateral lower eyelid transconjunctival blepharoplasty 3. Bilateral lower eyelid tarsal strip 4. Bilateral lower eyelid fat grafting Surgeon Luis Felipe Suarez MD Anesthesia General Indications Right lower eyelid distraction 14mm Left lower eyeelid distraction 10mm Findings Fat grafting right lower lid 3 cc Fat grafting left lower lid 3 cc Description of Procedure Preoperatively risks, benefits, alternatives were discussed in extensive detail. I want them to be very realistic about the risks involved as well as expectations. He understands the significant degree of lower lid laxity and the complexity associated wih this. Discussed what we can and cannot improved. Limitations of this procedure. Alternative procedure as well as adjuvant procedures. This was a lengthy open-ended conversation discussing realistic expectations of outcome. Answered all of their questions to their satisfaction. Consent obtained. Marked in the preoperative holding along the tarsal crease. A pinch test was completed to walt the upper border and pinch test was utilized to veriy no lagophthalmos after simulation of skin removal. Taken to the operating room placed supine on the operating room table. Anesthesia provided by anesthesiology. Prepped and draped in a standard sterile fashion. [place] Stab incision was made and tumescent solution was infiltrated with a tumescent solution. Upper and lower bleph anesthetized as below. Once adequate time for hemostasis suction lipectomy completed on 10cc syringe with a 3mm cannula (1mm holes). Upper blepharoplasty 1% lidocaine and 0.25% Marcaine with epinephrine was used anesthetize locally. Eyes irrigated with BSS. Tetracaine eye gtts placed. Corneal protectors placed. A 15 blade was used to excise the skin flap. I thin incised the muscle and entered the nasal and middle compartments removing only what was clearly excess adiposity. I verified strict hemostasis throughout. This was closed with 5-0 fast absorbing plain gut suture. Lower blepharoplasty 1% lidocaine and 0.25% Marcaine with epinephrine was used anesthetize locally with low volume of local to protect from distortion of structures. Needle-tip cautery was used to incise just inferior to the tarsus and a transconjunctival lower lid blepharoplasty technique. The conjunctiva was retracted with a 5-0 nylon. I elevated in a preseptal fashion down to the level of the rim. At this point I entered the nasal, middle, and temporal compartments and removed only what was clearly excess adiposity. I verified strict hemostasis throughout. I verified that the inferior oblique was protected during this procedure. With gentle pressure on the globe I verified the contour the lower lids. Both lids proceeded in the same manner. Retraction suture and corneal protectors were removed. Copious irrigated again with BSS solution. A lateral canthotomy and cantholysis was performed and I denuded a tarsal strip. The was sutured inside the orbital room with 4-0 polyester double arm suture. Placed in a sitting position to verify lid position. At this point there did not appear to be any skin laxity. Lid margin repaired at lynn line with 5-0 Fast absorbing as well as skin. Fat grafting There had been adequate time for gravity separation of adipose tissue. The central portion used and using a micro fat grafting kit to decrease the size to 1.2 microns. 18 gauge utilized to make entry points and utilizing a 0.9 mm cannula in multiple plains and passes on a 1mm syringe with care taken to protect the globe. Patient was woken taken the PACU without difficulty. All instrument sponge counts were correct at the end the case. Estimated Blood Loss 5 Drains No Packing No Pathology None s
[2023-09-09] MEDS: ceFAZolin SODIUM 2 GM/20 ML SW SYRINGE IV PUSH (07:38)
[2023-09-09] MEDS: TRANEXAMIC ACID 1,000 MG/10 ML AMPUL 1000 MG IV PUSH (07:45)
[2023-09-09] MEDS: LIDO 1%/EPINEPHRINE 1:100,000 50 ML VIAL 10 ML INFILTRATE (08:00)
[2023-09-09] MEDS: BUPivacaine HCL 0.25% PF 10 ML VIAL INFILTRATE (08:00)
[2023-09-09] MEDS: TETRACAINE HCL 0.5% OPHTH SOLN 4 ML BTL 4 DROP EACH EYE (08:14)
[2023-09-09] MEDS: LACTATED RINGERS IRRIG 1,000 ML, LIDOCAINE HCL 1% LOCAL INJ 50 ML, EPINEPHrine HCL INJ ... INFILTRATE (08:40)
[2023-09-09] MEDS: NEOMYCIN/POLYMYXIN/DEXAMETH OP OINT 3.5 GM TUBE 1 APPLIC AFFCTD EYE (09:52)
[2023-09-09] MEDS: fentaNYL CITRATE INJ (*CRX) 100 MCG/2 ML VIAL 25 MCG IV PUSH ×4 (10:17→10:38)
--- NOTE | 2023-09-09 11:09 | SUR.PHASEI ---
1100; NOTIFIED DR BAXTER OF PT'S CONTINUED BP OF 150s-170s/90-100s. NO NEW ORDERS. HAVE PT FOLLOW UP WITH PCP REGARDING POSSIBLE HTN. PT'S SPOUSE NOTIFIED.
[2023-09-09] MEDS: oxyCODONE HCL (*CRX) 5 MG TAB IR PO (11:47)
--- NOTE | 2023-09-09 12:27 | WPDANESPN ---
Anes - Prog Note Post-Op Date/Time: 09/09/23 12:27 Cardiovascular status: normal Respiratory status: normal Airway patency: baseline Mental status: baseline Post-Op hydration status: normal Vital Signs: Last Vital Signs Temp 36.5 C 09/09/23 10:00 Pulse 80 09/09/23 11:45 Resp 16 09/09/23 11:45 BP 169/99 H 09/09/23 11:45 Pulse Ox 96 09/09/23 11:45 O2 Del Method Room Air 09/09/23 11:45 O2 Flow Rate 6 09/09/23 10:15 Pain Score (VAS): 2 I/O: Intake & Output 09/08/23 09/09/23 09/09/23 23:59 07:59 15:59 Intake Total 300 Balance 300 Post-procedural complaints: none Patient Feedback: Patient satisfied with anesthetic care. Other Findings: Patient vital signs back to baseline. Patient denies nausea and vomiting. Patient's pain under control. Patient OK for discharge.
== END 2023-09-09 11:57 | disposition home or self-care (01) ==
PROVIDERS: PCP Family Medicine; Visit Provider Surgery Plastic and Reconstructive Surgery
PROC: (CPT 15821; principal; 2023-09-09 07:30)
DX: H02.831 Dermatochalasis of right upper eyelid (principal); H02.832 Dermatochalasis of right lower eyelid; H02.834 Dermatochalasis of left upper eyelid; H02.835 Dermatochalasis of left lower eyelid
CPT/HCPCS: 15821; 15822

== ENCOUNTER 2023-10-16 11:14 | Outpatient (CLI) | payer OTHER, SELFPAY ==
--- NOTE | ~2023-10-16 | XR_ITS ---
EXAMINATION: XR chest 2V 10/16/2023 11:23 INDICATION: Cough PROCEDURE: 2 view chest COMPARISON: 06/17/2021 FINDINGS: The lungs are clear. The cardiomediastinal silhouette is within normal limits. There are no pleural effusions. There is no pneumothorax suspected. IMPRESSION: 1: NO ACUTE CARDIOPULMONARY DISEASE. Reviewed, dictated and finalized at location B.
== END 2023-10-16 11:15 ==
LOC: MICIMG 11:15
PROVIDERS: PCP Nurse Practitioner Family; Visit Provider Nurse Practitioner Family
DX: R05.9 Cough, unspecified (principal)
CPT/HCPCS: 71046

== ENCOUNTER 2023-11-27 08:08 | Outpatient (CLI) | payer OTHER, SELFPAY ==
--- NOTE | ~2023-11-27 | XR_ITS ---
EXAMINATION: XR UGIAC w barium swallow DATE: 11/27/2023 08:40 INDICATION: Gastroesophageal reflux disease. Epigastric abdominal pain. Cough, unspecified. TECHNIQUE: The patient drank thick barium, gas-producing crystals, and thin barium. Fluoroscopy of th e esophagus, stomach, and proximal small bowel was performed. Fluoroscopy exposure time was 0.5 minut es. The total number of images was 213. Total dose-area product was 1.507 Gy-cm^2. COMPARISON: None. FINDINGS: There is no mass or stricture of the esophagus. Esophageal motility is normal. There is no hiatal hernia. There was no gastroesophageal reflux with provocative maneuvers. The stomach and proxi mal small bowel show normal folding patterns. IMPRESSION: 1. Normal upper gastrointestinal series. Reviewed, dictated and finalized at location A.
== END 2023-11-27 08:09 | disposition home or self-care (01) ==
LOC: ANHIMG 08:09
PROVIDERS: PCP Family Medicine; Visit Provider Nurse Practitioner Family
DX: R05.9 Cough, unspecified (principal)
CPT/HCPCS: 74246

== ENCOUNTER 2023-11-29 03:23 | Emergency (ER) | payer OTHER, SELFPAY ==
[2023-11-29 03:28] VITALS: BP 153/90; PULSE 63; RESP 20; TEMP 36.5; O2SAT 99
--- NOTE | 2023-11-29 04:08 | ED.SKABFB ---
HPI - Skin/Abscess/Foreign Bdy General Chief complaint: Skin/Abscess/Foreign Body Stated complaint: hemorrhoid for a couple of weeks Time Seen by Provider: 11/29/23 03:28 History of Present Illness HPI narrative: Patient presents with also almost 3 weeks hemorrhoid pain, he states that he feels like it has gotten worse over the last few days. Related Data Home Medications Medication Instructions Recorded Confirmed omeprazole 20 mg tablet,delayed 20 mg PO DAILY 01/07/22 11/09/23 release PT/INR testing monitor 09/18/22 11/09/23 cholecalciferol (vitamin D3) 25 25 mcg PO DAILY 09/18/22 11/09/23 mcg (1,000 unit) capsule ferrous sulfate 325 mg (65 mg 325 mg PO DAILY 09/18/22 11/09/23 iron) tablet tadalafil 5 mg tablet 5 mg PO DAILY 09/18/22 11/09/23 testosterone enanthate 50 mg/0.5 50 mg subcut WEEKLY 04/30/23 11/09/23 mL subcutaneous auto-injector Allergies Allergy/AdvReac Type Severity Reaction Status Date / Time ranitidine [From Zantac] Allergy Intermediate Rash Verified 11/29/23 03:30 sulfamethoxazole AdvReac Intermediate facial Verified 11/29/23 03:30 [From Bactrim] swelling trimethoprim [From Bactrim] AdvReac Intermediate facial Verified 11/29/23 03:30 swelling Review of Systems Review of Systems: All systems reviewed & are unremarkable except as noted in HPI and below PMFSH Past Medical History Medical History Adenomatous colon polyp Belching Bloating BMI 27.0-27.9,adult Chest tightness Colon cancer screening Dyspepsia Elevated blood pressure reading in office with diagnosis of hypertension Elevated blood pressure reading without diagnosis of hypertension Gastritis GERD without esophagitis Leukocytopenia, unspecified Low back pain Numbness and tingling in both hands Other fatigue Pleural effusion Unknown status of immunity to COVID-19 virus Surgical History Surgical History No pertinent past surgical history Family History Family History Father Hypertension Mother No problems noted. Sibling Obesity Social History Social History Smoking status: Never smoker Second hand tobacco smoke exposure: No Alcohol intake: current Alcohol use details: 2-3 drinks most days Substance use: never Substance use type: does not use Do You Feel Safe in your Home?: Yes Lack of Transportation: No Lack of Food: Never True Current Housing: I Have Housing Concerned About Future Housing: No Difficulty Paying Gas/Electric Bills: No Difficulty Paying for Meds: No Currently Unemployed: No Education: Bachelor's Degree Difficulty w/ Childcare or Family Care: No Living arrangements: with family Additional living arrangements comments: and kids Occupation/Education: occupation Additional occupation/education comments: [employer] Gender identity (if verbalized by the patient): Male Sexual Orientation (if Verbalized by the Patient): Straight or Heterosexual Spiritual care concerns: No Agree to blood products: Yes Exam Narrative: EXAMINATION OF ORGAN SYSTEMS/BODY AREAS: Constitutional: Vital signs per nursing GENERAL:[No acute distress, non-toxic appearing.] HEAD: Normal with no signs of head trauma. EYES: EOMI, conjunctiva normal ENT: Hearing grossly intact LUNGS: Nonlabored breathing. HEART: [Regular rate and rhythm] ABD: [Soft], [nontender to palpation] RECTAL: external hemorrhoid; soft EXT: Normal range of motion SKIN: [No rashes or lesions.] NEURO: [Alert and oriented x 3. No gross focal sensory or strength deficits.] PSYCH: Normal affect Course Vital Signs Vital signs: Vital Signs Temperature 97.7 F 11/29/23 03:28 Pulse Rate 63 11/29/23 03:28 Respiratory Rate 20 06
[2023-11-29] MEDS: LIDOCAINE HCL 2% GEL UROJET 10 ML PKG MUCOUS MEM (04:23)
== END 2023-11-29 04:31 | disposition home or self-care (01) ==
PROVIDERS: Emergency Provider Emergency Medicine; PCP Family Medicine
DX: K64.9 Unspecified hemorrhoids (principal); K21.9 Gastro-esophageal reflux disease without esophagitis
CPT/HCPCS: 99283

== ENCOUNTER 2024-02-23 14:21 | Outpatient (CLI) | payer OTHER, SELFPAY ==
--- NOTE | 2024-02-23 14:44 | ECHO_ITS ---
Patient Info Name: Amauri Santos Age: 53 years : 1970 Gender: Male Ht: 71 in Wt: 195 lbs BSA: 2.12 m2 HR: 56 bpm BP: 164 / 101 mmHg Heart Rhythm: Bradycardia Technical Quality: Good Exam Date: 02/23/2024 2:58 PM Exam Location: Echo Lab Patient Status: Outpatient Admit Date: 02/23/2024 Staff Ordering Physician: Rebeca Bailey Ballet Dancer: Cassidy Irvin RDCS Attending Provider: Rebeca Bailey Referring Physician: Lynn URBINA; Exam Type: CA echo doppler color flow Study Info Indications - elevated c-reactive protein ( CRP) Complete two-dimensional, color flow and Doppler transthoracic echocardiogram is performed. Summary 1. Complete two-dimensional, color flow and Doppler transthoracic echocardiogram is performed. 2. Left ventricular chamber dimension is mildly enlarged. 3. Left ventricular systolic function is normal, estimated at 60-65%. 4. The left ventricular diastolic function is normal. 5. E/e' 6 is not elevated. 6. Left atrial chamber dimension is moderately enlarged. 7. Right atrial chamber dimension is moderately enlarged. 8. There is trace mitral valve regurgitation. 9. No pulmonary hypertension, estimated pulmonary arterial systolic pressure is 28 mmHg. 10. There is trace pulmonic regurgitation. Left Ventricle E/e' 6 is not elevated. Left ventricular chamber dimension is mildly enlarged. Left ventricular systolic function is normal, estimated at 60-65%. The left ventricular diastolic function is normal. Right Ventricle Right ventricular systolic function is normal and with normal TAPSE 3.2 cm. Right ventricular chamber dimension is normal. Left Atria Left atrial chamber dimension is moderately enlarged. Right Atria Right atrial chamber dimension is moderately enlarged. Aortic Valve The aortic valve is trileaflet. There is no aortic valve stenosis. There is no aortic valve regurgitation. Pulmonic Valve There is trace pulmonic regurgitation. Mitral Valve There is no mitral valve stenosis. There is trace mitral valve regurgitation. Tricuspid Valve There is no tricuspid valve regurgitation. No pulmonary hypertension, estimated pulmonary arterial systolic pressure is 28 mmHg. Pericardium/Pleural There is no pericardial effusion. Inferior Vena Cava Normal inferior vena cava with >50% collapse upon inspiration consistent with normal right atrial pressure, 5 mmHg. Aorta The aortic root size at the sinus of Valsalva is normal. Left Ventricular Outflow Tract Name Value Normal LVOT 2D LVOT Diameter 2.1 cm LVOT Doppler LVOT Peak Gradient 4 mmHg LVOT Mean Gradient 2 mmHg LVOT VTI 19 cm LVOT VTI/AV VTI Ratio 0.6 LVOT Stroke Volume 64 ml LVOT CO 3.6 l/min LVOT CI 1.7 l/min/m2 Pulmonic Valve Name Value Normal RVOT Doppler
== END 2024-02-23 14:22 | disposition home or self-care (01) ==
LOC: ANHCARD 14:22
PROVIDERS: PCP Family Medicine; Visit Provider Nurse Practitioner Family
DX: I11.9 Hypertensive heart disease without heart failure (principal); R79.82 Elevated C-reactive protein (CRP)
CPT/HCPCS: 93306

== ENCOUNTER 2024-05-31 08:42 | Outpatient (CLI) | payer OTHER, SELFPAY ==
[2024-06-13 15:23] VITALS: BMI 27.1
--- NOTE | 2024-06-13 15:23 | P.SLEEP_ITS ---
Sleep Study - Home Unattended Date of Study: 05/31/24 Ordering Provider: Martín Liu DO Interpreting Provider: Marilin Bryant DO Home Sleep Study Type: Watch PAT Height: 1.8 m Weight: 88.451 kg Body Mass Index: 27.1 Neck Circumference (inches): 17.5 [place]: 6 Reason for Sleep Study Daytime hypersomnia Sleep History The patient is a 53-year-old male that had a sleep study ordered by his meat and seafood clerk for evaluation of sleep apnea. The patient admits to having trouble maintaining sleep as well as excessive daytime sleepiness. He denies snoring loudly. He denies stopping breathing while asleep. He admits to choking or gasping while sleeping. He does have trouble breathing on his back. He denies morning headaches. He denies having a dry or sore mouth/ throat in the morning. He denies nocturnal heartburn. He denies nocturia. He denies having trouble falling asleep. He does have difficulty returning to sleep if he wakes up during the night. He denies any hypnotic or sedative use. He denies feeling anxious about sleep. He does feel tired or sleepy during the day. He does feel unrefreshed in the morning. He does feel drowsy while driving. He denies sleep paralysis, cataplexy and hypnagogic / hypnopompic hallucinations. He denies clenching or grinding his teeth. He denies kicking or jerking his legs excessively. He denies having a restless feeling in his legs. He goes to bed at 9:00 p.m. on work days and at 10:00 p.m. on his days off. It takes him 15 minutes to fall asleep. He did 6 hours of sleep per night. His sleep is somewhat restorative on his days off. He denies taking any planned naps. He denies dream enactment behavior. He denies sleep walking. He consumes 1-2 cups of caffeinated beverage per day. He consumes 2 glasses of an alcoholic beverage 3-4 nights per week. He denies tobacco use. He exercises 3-4 nights per week. [facility] Past Medical History Medical History Dyspepsia Low back pain Unknown status of immunity to COVID-19 virus Elevated blood pressure reading without diagnosis of hypertension Elevated blood pressure reading in office with diagnosis of hypertension Numbness and tingling in both hands Pleural effusion Leukocytopenia, unspecified Other fatigue Belching Bloating Adenomatous colon polyp Gastritis Colon cancer screening Chest tightness GERD without esophagitis Surgical History Surgical History No pertinent past surgical history Family History Family History Father Hypertension Mother No problems noted. Sibling Obesity Social History Social History Smoking status: Never smoker Second hand tobacco smoke exposure: No Alcohol intake: current Alcohol use details: 2-3 drinks most days Substance use: never Substance use type: does not use Do You Feel Safe in your Home?: Yes Lack of Transportation: No Lack of Food: Never True Current Housing: I Have Housing Concerned About Future Housing: No Difficulty Paying Gas/Electric Bills: No Difficulty Paying for Meds: No Currently Unemployed: No Education: Bachelor's Degree Difficulty w/ Childcare or Family Care: No Living arrangements: with family Additional living arrangements comments: and kids Occupation/Education: occupation Additional occupation/education comments: [employer] Gender identity (if verbalized by the patient): Male Sexual Orientation (if Verbalized by the Patient): Straight or Heterosexual Spiritual care concerns: No Agree to blood products: Yes Medications Home Medications ?Medication ?Instructions ?Recorded ?Confirmed ?Type cholecalciferol (vitamin D3) 25 25 mcg PO DAILY 09/18/22 03/28/24 History mcg (1,000 unit) capsule ferrous sulfate 325 mg (65 mg 325 mg PO DAILY 09/18/22 03/28/24 History iron) tablet tadalafil 5 mg tablet 5 mg PO DAILY 09/18/22 03/28/24 History testosterone enanthate 50 mg/0.5 50 mg subcut WEEKLY 04/30/23 03/28/24 History mL subcutaneous auto-injector omeprazole 20 mg tablet,delayed 20 mg PO DAILY 3 months #90 tabs 12/07/23 03/28/24 Rx release hydrocortisone 2.5 % topical cream 1 applic RECTAL DAILY #30 grams 12/10/23 03/28/24 Rx with perineal applicator (Anusol-HC) amlodipine 5 mg tablet 5 mg PO DAILY #30 tabs 06/04/24 Rx Sleep Procedure The sleep study was completed using [employer] a technically adequate device with seven channels: peripheral arterial tone, actigraphy, body position, snore, respiratory movement, pulse oximetry, sleep staging, and heart rate. Prior to using the device, the patient received verbal and written instructions for its application and was provided with the help desk phone number for additional telephonic instruction with 24-hour availability of qualified personnel to answer questions. The study was scored using CMS guidelines. Sleep Architecture The total recording time is 7 hrs, 58 min. The total sleep time is 6 hrs, 44 min. Sleep latency is 6 minutes. REM latency is 194 minutes. The patient had 23 episodes of waking. Sleep architecture shows 16.9% deep sleep, 68.9% light sleep, and (as % Total Sleep Time) showed NREM (Light 68.9%; Deep 16.9%), and a 14.1% stage REM. The patient spent 76.4% of total sleep time in the supine position. Sleep efficiency was 84.52. Respiratory Analysis The overall AHI (pAHI 3%:) is 24.8. The central AHI is 6.3. The AHI was 23.4 in NREM and 33.8 in REM sleep. The AHI was 31.3 in Supine and 4.4 in Non-supine sleep. Percent of Alfredo Valdovinos respirations is 0.0. Oximetry Data The oxygen desaturation index (LUZ 4%:) is 13.1. The mean saturation is 93%, and the lowest saturation is 87%. Time spent with saturation < 88% is 0.1 minutes. Snoring Profile Snoring average intensity is 40 dB. The patient snored above 45 decibels for 11.3 minutes, 2.8% of sleep time. Cardiac Profile The average pulse rate is 62 beats per minutes. The lowest pulse rate is 47 bpm. The highest pulse rate reported is 94 bpm. Atrial fibrillation was not detected. Premature beats occur <0.1 per minute. Assessment and Plan Assessment and Plan (1) ETHAN (obstructive sleep apnea): Code(s): G47.33 - Obstructive sleep apnea (adult) (pediatric) Status: Acute Assessment and Plan: The patient had an overall AHI of 24.8 with desaturation down to 87%. This is consistent with moderate sleep apnea. The patient had a central apnea index of 6.3, which is elevated (normal < 5). Due to the patient's elevated central apnea index, he is not a candidate for AutoPAP. AutoPAP can increase the severity and frequency of central apneas. I recommend that this patient have a CPAP Titration study with the use of a hypnotic (Lunesta 2-3 mg or Ambien 5-10 mg) to ensure we obtain enough sleep data and find an optimal pressure. The patient had an echocardiogram done in February 2024 that did not show a cardiogenic cause for an elevated central apnea index. Data The data obtained during this sleep study is adequate for interpretation. Certification This sleep study has been reviewed by a board certified sleep medicine physician.
== END 2024-06-01 11:51 | disposition home or self-care (01) ==
LOC: ANHCSM 08:43
PROVIDERS: PCP Family Medicine; Visit Provider Internal Medicine Cardiovascular Disease
DX: G47.33 Obstructive sleep apnea (adult) (pediatric) (principal); G47.10 Hypersomnia, unspecified
CPT/HCPCS: 95800

== ENCOUNTER 2024-09-04 16:59 | Emergency (ER) | payer OTHER, SELFPAY ==
--- NOTE | ~2024-09-04 | CT_ITS ---
EXAMINATION: CT abdomen pelvis w con DATE: 09/04/2024 19:56 INDICATION: right mid-lower abdominal pain TECHNIQUE: Computed tomography (CT) of the abdomen and pelvis was performed with 100 mL Omnipaque-350 intravenous contrast. Automated exposure control and iterative reconstruction technique were employe d. The dose-length product was 578.15 mGy-cm. COMPARISON: None. FINDINGS: Lower thorax: Bibasilar scar/atelectasis. Scattered air cysts. Liver: Normal. Biliary/Gallbladder: Gallbladder is normal. No bile duct dilation. Pancreas: No mass or duct dilation. Spleen: Normal. Adrenals:No mass. Kidneys: No calcification or suspicious mass. Mild renal pelvis and proximal ureteral stranding and p roximal ureterectasis. GI tract: No small or large bowel dilation. Appendix not confidently visualized. No pericecal inflamm atory process detected. Mesentery/Peritoneum: No ascites, mass, or free air. Prominent lymph nodes with surrounding fat halos . Retroperitoneum: No mass. Pelvis: Partially distended urinary bladder with mild inflammatory change. 6 x 10 mm calcification wh ich appears to be lodged in or just past the distal right UVJ. Moderate ureterectasis on the right. M ild right periureteral stranding. Prostatomegaly Soft Tissues: Soft tissues and body wall unremarkabl e. Bones: No acute osseous finding. IMPRESSION: Mild mesenteric panniculitis. 10 x 6 mm bladder calcification, may be in the distal UVJ or recently passed. Correlate for recent ch rancho and clinical symptoms. Mild-moderate right ureterectasis and mild ureteral stranding. Lack of significant obstructive uropat hy on the right increased the likelihood of stone passage. Mild cystitis. Reviewed, dictated and finalized at location K. IMPRESSION: Mild mesenteric panniculitis. 10 x 6 mm bladder calcification, may be in the distal UVJ or recently passed. C orrelate for recent change and clinical symptoms. Mild-moderate right ureterectasis and mild ureteral stranding. Lack of signific ant obstructive uropathy on the right increased the likelihood of stone passage . Mild cystitis.
--- OUTSIDE RECORDS SUMMARY | 2024-09-04 17:00 | XMS_ITS | Encounter Summary ---
Author Organization [facility] Healthcare Address [address] [place] [address] Care Team Providers Care Cone Classifier Tender Name Role Phone Melvin Perkins MD Primary Care Provider [phone] Encounter Details Date Type Department Care Team (Late st Contact Info) Description 09/04/2024 Patient Self-Triage [facility] [place] [address] Mychart, [facility] Provider [address] [place], [place] [id number] Social History Tobacco Use Types Packs/Day Years Used Date Smoking Tobacco: Never Smokeless Tobacco: Never Comments:None every used Alcohol Use Standard Drinks/Week Comments Yes 0 (1 standard drink = 0.6 oz pur e alcohol) AUDIT-C Answer Date Recorded Q1: How often do you have a drink containing alcohol? Never 04/30/2022 Q2: How many drinks containi ng alcohol do you have on a typical day when you are drinking? Patient does not drink Q3: How often do you have si x or more drinks on one occasion? 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
--- OUTSIDE RECORDS SUMMARY | 2024-09-04 17:00 | XMS_ITS | Encounter Summary ---
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 Gender Identity Not on file Sexual Orientation Not on file 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 Take 1 at HS, if tolerated after 5 days may increase to 2 at HS. 60 capsule 04/30/2022 imiquimod (ALDARA) 5 % cream APPLY TO SCALP EVERY NIGHT AT BEDTIME AND WASH OFF IN THE MORNING FOR 2 WEEKS THEN TAKE 2 WEEKS OFF THEN 2 WEEKS ON 10/21/2022 iron ag,qo-[id number]-[id number] n-sa-sto 150 mg iron- 60 mg-1 mg tablet 08/20/2022 meloxicam (MOBIC) 15 mg tablet Take 1 tablet (15 mg total) by mouth daily with breakfast Take 1 daily with food 30 tablet 02/21/2021 multivitamin capsule Take 1 capsule by mouth daily omeprazole (PriLOSEC) 40 mg capsule Take 1 capsule (40 mg total) by mouth daily 01/24/2021 phytonadione (VITAMIN K1) 5 mg tablet Take by mouth once predniSONE (DELTASONE) 20 mg tabletIndications :Pharyngitis, unspecified etiology Take 1 tablet (20 mg) by mouth daily for 3 days 3 tablet 09/02/2024 tadalafiL (CIALIS) 5 mg tablet Take 1 tablet (5 mg total) by mouth daily testosterone cypionate (DEPO-TESTOTERONE ) 200 mg/mL injection INJECT 1/2 ML ONCE WEEKLY 11/23/2020 testosterone cypionate, micro (testosterone cyp, micro, bulk,) 100 % powder 0 10/07/2022 testosterone enanthate, bulk, 100 % powder 0 10/07/2022 testosterone propionate, bulk, powder 0 10/07/2022 tiZANidine (ZANAFLEX) 4 mg tablet TAKE 1 TABLET BY MOUTH EVERY DAY AT BEDTIME NEEDED FOR MUSCLE SPASMS 04/15/2022 valACYclovir (VALTREX) 1 gram tablet TAKE 1 TABLET BY MOUTH THREE TIMES DAILY FOR 7 DAYS 07/08/2022 documented as of this encounter Discharge Disposition Disposition Code Departure Means Destination Discharge to home or self care documented in this encounter Plan of Treatment Not on file documented as of this encounter Procedures Procedure Name Priority Date/Time Associated Diagnosis Comments THROAT CULTURE Routine 09/02/2024 9:06 AM CDT Pharyngitis, unspecified etiology documented in this encounter Results * Throat culture Throat (09/02/2024 9:06 AM CDT) Report Final Report: No growth of pathogens. Comment:Testing performed by : [facility], [address] [place]., [address] Throat 09/02/2024 9:06 AM CDT 09/02/2024 6:34 PM CDT Narrative ZULEIMA ALBARADO - 09/03/2024 4:03 PM CDT Testing performed by [facility] Microbiology Laboratory ([phone]). Becky Roberts DITCHER OPERATOR LAB MICROBIOLOGY - GENERAL ORD ERABLES Final Result ZULEIMA [id number] Department [place] [address] documented in this encounter Visit Diagnoses Diagnosis Pharyngitis, unspecified etiology documented in this encounter Care Teams Wastewater Treatment Plant Operator Relationship Specialty Start Date End Date Melvin Perkins MD PCP - General 04/27/17 documented as of this encounter
--- OUTSIDE RECORDS SUMMARY | 2024-09-04 17:00 | XMS_ITS | Encounter Summary ---
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
--- OUTSIDE RECORDS SUMMARY | 2024-09-04 17:00 | XMS_ITS | Encounter Summary ---
Author Organization [facility] Healthcare Address [address] [place] [address] Care Team Providers Care Personal Banking Officer Name Role Phone Melvin Perkins MD Primary Care Provider [phone] Reason for Visit * Reason Comments Sinus Problem Entered automaticall y based on patient selection in [employer]. 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 Amauri Santos 09/04/2024 E-Visit Submission Subjective/Objective: Amauri Santos contacted the office today via e-visit for Sinusitis. The patient-submitted questionnaire was assessed for pertinent information and the patient's problem list, medication list, and allergies were reviewed as part of the e-visit. The chart was updated to identify any changes in these areas. Assessment: Diagnosis Plan 1. Acute upper respiratory infection 2. Acute cough 3. Eye drainage Plan: The patient was given information regarding any new medication(s) prescribed, if applicable, as well as any [id number] remedies. He was given instructions regarding follow up and timeframe if symptoms worsen or don???t improve. These instructions were included in the [employer] message reply to the patient. Patient Instructions were included in the message reply to patient. My total encounter time on 09/04/2024 was 5 minutes which was spent in the activities documented inthe note. New Medications Ordered This Visit amoxicillin-clavulanate (AUGMENTIN) 875-125 mg per tablet Sig: Take 1 tablet by mouth 2 (two) times a day for 7 days Dispense: 14 tablet Refill: 0 polymyxin B-trimethoprim (POLYTRIM) ophthalmic solution Sig: Administer 2 drops into both eyes 4 (four) times a day for 7 days Dispense: 10 mL Refill: 0 Silvia Huerta NP documented in this encounter Plan of Treatment Not on file documented as of this encounter Visit Diagnoses Diagnosis Acute upper respiratory infection- Primary Acute upper respiratory infections of unspecified site Acute cough Eye drainage documented in this encounter Care Teams Personal Banking Officer Relationship Specialty Start Date End Date Melvin Perkins MD PCP - General 04/27/17 documented as of this encounter
--- OUTSIDE RECORDS SUMMARY | 2024-09-04 17:00 | XMS_ITS | Encounter Summary ---
Author Organization [facility] Address 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 Gender Identity Not on file Sexual Orientation Not on file documented as of this encounter Plan of Treatment Not on file documented as of this encounter Procedures Procedure Name Priority Date/Time Associated Diagnosis Comments CBC WITH DIFFERENTIAL Routine 09/14/2006 8:09 PM CDT CBC WITH DIFFERENTIAL Routine 09/14/2006 8:09 PM CDT C-REACTIVE PROTEIN Routine 09/14/2006 8: 09 PM CDT LIPASE Routine 09/14/2006 8:09 PM CDT AMYLASE Routine 09/14/2006 8:09 PM CDT COMPREHENSIVE METABOLIC PANEL Routine 09/14/2006 8:09 PM CDT documented in this encounter Results * CBC WITH DIFFERENTIAL (09/14/2006 8:09 PM CDT) NEUTROPHILS 62 45 - 70 % INTERFAC E SYSTEM LYMPHOCYTES 26 16 - 45 % INTERFAC E SYSTEM MONOCYTES 10 3 - 13 % INTERFACE SYSTEM EOSINOPHILS 2 0 - 7 % INTERFAC E SYSTEM BASOPHILS 0 0 - 2 % INTERFACE SYSTEM NEUTROPHIL ABSOLUTE 3.93 1.90 - 7.00 K/uL INTERFACE SYSTEM LYMPHOCYTE ABSOLUTE 1.67 0.70 - 4.50 K/uL INTERFACE SYSTEM MONOCYTE ABSOLUTE 0.62 0.10 - 1.30 K/uL INTERFACE SYSTEM EOSINOPHIL ABSOLUTE 0.12 0.00 - 0.70 K/uL INTERFACE SYSTEM BASOPHILS ABSOLUTE 0.02 0.00 - 0.20 K/uL INTERFACE SYSTEM 09/14/2006 8:09 PM CDT Aayush Carbajal MD HEMATOLOGY ORDERABLES Edited Performing Organization Address City/[facility] de Phone Number INTERFACE SYSTEM Refer to clinic/hospital department * CBC WITH DIFFERENTIAL (09/14/2006 8:09 PM CDT) WBC 6.4 4.0 - 9.8 K/uL INTERFACE SYSTEM RBC 5.28 4.50 - 5.40 M/uL INTERFACE SYSTEM HEMOGLOBIN 15.6 13.6 - 16.5 g/dL INTERFACE SYSTEM HEMATOCRIT 44.2 40.0 - 48.0 % INTERFACE SYSTEM MCV 83.7 82.0 - 99.0 fL INTERFACE SYSTEM MCH 29.5 27.2 - 32.6 pg INTERFACE SYSTEM MCHC 35.3 31.5 - 35.5 % INTERFACE SYSTEM RDW 12.8 11.5 - 14.5 % INTERFACE SYSTEM RDW-STDEV 38.2 37.1 - 48.7 fL INTERFACE SYSTEM PLATELETS 167 140 - 350 K/uL INTERFACE SYSTEM MPV 11.7 9.3 - 12.4 fL INTERFACE SYSTEM 09/14/2006 8:09 PM CDT Aayush Carbajal MD HEMATOLOGY ORDERABLES Edited Performing Organization Address [facility] de Phone Number INTERFACE SYSTEM Refer to clinic/hospital department * LIPASE (09/14/2006 8:09 PM CDT) LIPASE 25 13 - 60 U/L INTERFAC E SYSTEM 09/14/2006 8:09 PM CDT Aayush Carbajal MD CHEMISTRY ORDERABLES Edited INTERFACE SYSTEM Refer to clinic/hospital department * (ABNORMAL) C-REACTIVE PROTEIN (09/14/2006 8:09 PM CDT) CRP 2.3(H) 0.0 - 0.8 mg/dL INTERFACE SYSTEM 09/14/2006 8:09 PM CDT Aayush Carbajal MD CHEMISTRY ORDERABLES Edited Performing Organization Address City/[facility] Co de Phone Number INTERFACE SYSTEM Refer to clinic/hospital department * COMPREHENSIVE METABOLIC PANEL (09/14/2006 8:09 PM CDT) GLUCOSE 97 65 - 99 mg/dL INTERFACE SYSTEM CREATININE 0.86 0.67 - 1.17 mg/dL INTERFACE SYSTEM CALCIUM 9.5 8.4 - 10.2 mg/dL INTERFACE SYSTEM ALKALINE PHOSPHATASE 75 40 - 129 U/L INTERFACE SYSTEM AST 13 12 - 38 U/L INTERFACE SYSTEM ALT 13 0 - 41 U/L INTERFACE SYSTEM TOTAL PROTEIN 7.7 6.3 - 8.6 g/dL INTERFACE SYSTEM ALBUMIN 4.6 3.4 - 4.8 g/dL INTERFACE SYSTEM BILIRUBIN TOTAL 0.8 0.2 - 1.0 mg/dL INTERFACE SYSTEM BUN 9 6 - 20 mg/dL INTERFACE SYSTEM SODIUM 142 135 - 145 mmol/L INTERFACE SYSTEM POTASSIUM 4.1 3.5 - 4.9 mmol/L INTERFACE SYSTEM CHLORIDE 104 96 - 108 mmol/L INTERFACE SYSTEM CO2 27 22 - 30 mmol/L INTERFACE SYSTEM GFR, >60 >=60 mL/min/1.7 sq meter INTERFACE SYSTEM GFR >60 >=60 mL/min/1.7 sq meter INTERFACE SYSTEM Comment: Estimated GFR rate interpretative information for both Americans and non- Americans is available on the [facility] Intranet at: [email or web address] Select: Lab Policies and Procedures Select: Reference Ranges - GFR 09/14/2006 8:09 PM CDT us Aayush Carbajal MD CHEMISTRY ORDERABLES Edited Performing Organization Address City/[facility] de Phone Number INTERFACE SYSTEM Refer to clinic/hospital department * AMYLASE (09/14/2006 8:09 PM CDT) AMYLASE 45 28 - 100 U/L INTERFACE SYSTEM 09/14/2006 8:09 PM CDT us Aayush Carbajal MD CHEMISTRY ORDERABLES Edited Performing Organization Address [facility] Phone Number INTERFACE SYSTEM Refer to clinic/hospital department documented in this encounter Visit Diagnoses Diagnosis Other acute pain- Primary documented in this encounter Care Teams Behavioral Consultant Relationship Specialty Start Date End Date Melvin Perkins MD [address] [place] [address] PCP - General Family Practice 03/10/18 documented as of this encounter
--- OUTSIDE RECORDS SUMMARY | 2024-09-04 17:00 | XMS_ITS | Referral Summary ---
Author Organization [facility] Address [address] [place] [address] Care Team Providers Care Data Security Consultant Name Role Phone Melvin Perkins MD Primary Care Provider Encounters Date Type Department Care Team Description 09/04/2024 9:20 AM CDT E-Visit [facility] Medical Group Virtual Care [address] [place] [phone] Silvia Huerta NP Your Medications 09/04/2024 Patient Self-Triage [facility] HealthCare/ Physicians [address] [place] [address] Mychart, Generic Provider 09/03/2024 Results Follow-Up [facility] Medical Group Convenient Care at [address] [phone] Becky Roberts NP 09/02/2024 9:06 AM CDT - 09/02/2024 11:59 PM CDT Hospital Encounter [facility] [address] [place] [address] Pharyngitis, unspecified etiology Discharge Disposition: Discharge to home or self care 09/02/2024 9:00 AM CDT Office Visit [facility] Medical Group Convenient Care at [address] [phone] Becky Roberts NP Pharyngitis, unspecified etiology (Primary Dx) 06/13/2024 Orders Only [facility] Orthopaedic Surgery [address] [place] [address] [address] [place] [address] Khloe Cramer, BHAVIK Chronic midline low back pain without sciatica (Primary Dx) from Last 3 Months Allergies Active Allergy Reactions Criticality Noted Date Comments Sulfa (Sulfonamide Antibiotics) Rash Medium 04/22 Sulfa drugs Medications clomiPRAMINE (ANAFRANIL) 75 mg capsule Active omeprazole (PriLOSEC) 40 mg capsule Take 1 capsule (40 mg total) by mouth daily 1 Active testosterone cypionate (DEPO-TESTOTERO NE) 200 mg/mL injection INJECT 1/2 ML ONCE WEEKLY 1 Active meloxicam (MOBIC) 15 mg tablet Take 1 tablet (15 mg total) by mouth daily with breakfast Take 1 daily with food 30 tablet 1 Active Additional Information Patient not taking.Reported on 09/02/2024 tiZANidine (ZANAFLEX) 4 mg tablet TAKE 1 TABLET BY MOUTH EVERY DAY AT BEDTIME NEEDED FOR MUSCLE SPASMS 2 Active multivitamin capsule Take 1 capsule by mouth daily Active gabapentin (NEURONTIN) 300 mg capsule Gabapentin 300 mg. Take 1 at HS, if tolerated after 5 days may increase to 2 at HS. 60 capsule 2 Active Additional Information Patient not taking.Reported on 09/02/2024 tadalafiL (CIALIS) 5 mg tablet Take 1 tablet (5 mg total) by mouth daily Active iron ag,[id number]-J-[id number] -Zn-sa-sto 150 mg iron- 60 mg-1 mg tablet 3 Active phytonadione (VITAMIN K1) 5 mg tablet Take by mouth once Active valACYclovir (VALTREX) 1 gram tablet TAKE 1 TABLET BY MOUTH THREE TIMES DAILY FOR 7 DAYS 3 Active cholecalciferol , vitamin D3, (VITAMIN D3 ORAL) Take by mouth Active testosterone cypionate, micro (testosterone cyp, micro, bulk,) 100 % powder 0 3 Active testosterone enanthate, bulk, 100 % powder 0 3 Active testosterone propionate, bulk, powder 0 3 Active imiquimod (ALDARA) 5 % cream APPLY TO SCALP EVERY NIGHT AT BEDTIME AND WASH OFF IN THE MORNING FOR 2 WEEKS THEN TAKE 2 WEEKS OFF THEN 2 WEEKS ON 3 Active Anucort-HC 25 mg suppository Insert 1 suppository (25 mg total) into the rectum 2 (two) times a day 4 Active amLODIPine (NORVASC) 5 mg tablet Take 1 tablet (5 mg total) by mouth daily 4 Active ferrous sulfate 325 mg (65 mg of elemental iron) tablet Take 1 tablet (325 mg total) by mouth daily Active predniSONE (DELTASONE) 20 mg tabletIndicatio ns:Pharyngitis, unspecified etiology Take 1 tablet (20 mg) by mouth daily for 3 days 3 tablet 5 025 Active amoxicillin-cla vulanate (AUGMENTIN) 875-125 mg per tablet Take 1 tablet by mouth 2 (two) times a day for 7 days 14 tablet 5 025 Active polymyxin B-trimethoprim (POLYTRIM) ophthalmic solution Administer 2 drops into both eyes 4 (four) times a day for 7 days 10 mL 5 025 Active predniSONE (DELTASONE) 10 mg tablet Take 4 tabs days 1-3, take 3 tabs day 4-6, take 2 tabs day 7-9, take 1 tab days 10-14 32 tablet 3 025 Discontin ued(Thera py completed ) Active Problems Problem Noted Date Diagnosed Date Chest pain 01/13/2022 Enchondroma of humerus, 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 01/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 Gastroesophageal reflux disease 06/27/2020 Cough 06/27/2020 Abnormal finding on lung imaging 06/27/2020 Sprain of anterior talofibular ligament of right ankle 12/22/2016 Sprain of tarsometatarsal joint of left foot 08/2016 Disorder of bone 04/21/2016 Pain in the shoulder 04/21/2016 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 Arthralgia of hip 05/29/2011 Social History Tobacco Use Types Packs/Day Years Used Date Smoking Tobacco: Never Smokeless Tobacco: Never Tobacco Cessation:Counseling Given: Not Answered Comments:None every used Alcohol Use Standard Drinks/Week [...] on file 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 Gender Identity Not on file Sexual Orientation Not on file 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 Not on file Not on file Last Filed Vital Signs Vital Sign Reading Time Taken Comments Blood Pressure 137/81 09/02/2024 8:47 AM CDT Pulse 76 09/02/2024 8:47 AM CDT Temperature 36.6 C (97.8 F) 09/02/2024 8:47 AM CDT Respiratory Rate 20 09/02/2024 8:47 AM CDT Oxygen Saturation 98% 09/02/2024 8:47 AM CDT Inhaled Oxygen Concentration - - Weight 92.4 kg (203 lb 11.2 oz) 09/02/2024 8:47 AM CDT Height 180.3 cm (5' 10.98 ) 11/26/2023 5:58 PM C DT Body Mass Index 28.42 11/26/2023 5:58 PM CDT Plan of Treatment Not on file Procedures Procedure Name Priority Date/Time Associated Diagnosis Comments THROAT CULTURE Routine 09/02/2024 9:06 AM CDT Pharyngitis, unspecified etiology POCT RAPID STREP Routine 09/02/2024 9:05 AM CDT Pharyngitis, unspecified etiology from Last 3 Months Results * Throat culture Throat (09/02/2024 9:06 AM CDT) Report Final Report: No growth of pathogens. Comment:Testing performed by : [facility], [address] [facility], [place]., [address] Throat 09/02/2024 9:06 AM CDT 09/02/2024 6:34 PM CDT Narrative ZULEMIA VERENA - 09/03/2024 4:03 PM CDT Testing performed by [facility] Microbiology Laboratory ([phone]). Becky Roberts NP LAB MICROBIOLOGY - GENERAL ORD ERABLES Final Result ZULEIMA [id number] [address] Department [place] [address] * POCT rapid strep A (09/02/2024 9:05 AM CDT) [facility] Signature Rapid Strep A, POC Negative Negative Swab 09/02/2024 9:05 AM CDT Becky Roberts NP POINT OF CARE TEST ORDERABLES Final Result from Last 3 Months Insurance CIGNA CIGNA CIGNA Care Teams Data Security Consultant Relationship Specialty Start Date End Date Melvin Perkins MD PCP - General 04/27/17
--- OUTSIDE RECORDS SUMMARY | 2024-09-04 17:00 | XMS_ITS | Clinical Summary ---
Author Organization [facility] Address [facility] [place] [address] Care Team Providers Care Waiter Waitress Name Role Phone Melvin Perkins MD Primary Care Provider [phone] Allergies Active Allergy Reactions Criticality Noted Date Comments Sulfa Antibiotics Rash Low 05/02/2020 Sulfa drugs Medications omeprazole 40 MG capsule TK 1 C PO D 04/30/2020 Active testosterone cypionate 200 MG/ML injection 02/23/2020 Act puneet albuterol sulfate HFA 108 (90 Base) MCG/ACT inhalerIndicatio ns:Cough Inhale 2 puffs into the lungs every 6 (six) hours as needed for Wheezing. 8 g 1 03/22/2021 Active Active Problems Problem Noted Date Diagnosed Date Gastroesophageal reflux dise ase, unspecified whether esophagitis present 06/27/2020 Abnormal finding on lung imaging 06/27/2020 Cough 06/27/2020 Pleural effusion 06/27/2020 Immunizations Name Administration Dates Next Due PFIZER COVID-19 (ORIGINAL FO RMULATION, PURPLE CAP) mRNA, LNP-S, PF, 30 MCG/0.3 ML DOSE 06/04/2021,04/16/2021 Family History Medical History Relation Comments No Known Problems Father No Known Problems Mother Relation Status Comments Father Alive Mother Alive Social History Tobacco Use Types Packs/Day Years Used Date Smoking Tobacco: Never Smokeless Tobacco: Never Tobacco Cessation:Counseling Given: No Alcohol Use Standard Drinks/Week Comments Yes 0 (1 standard drink = 0.6 oz pur e alcohol) occ PHQ-2 Answer Date Recorded PHQ-2 Score - If the patient scores above 3, please move on to questions 3-9 0 09/12/2021 Sex and Gender Information Value Date Recorded Sex Assigned at Not on file Legal Sex Male 1:20 PM CDT Gender Identity Not on file Sexual Orientation Not on file Last Filed Vital Signs Vital Sign Reading Time Taken Comments Blood Pressure 138/82 09/12/2021 2:04 PM CDT Pulse 78 09/12/2021 2:04 PM CDT Temperature 36.2 C (97.2 F) 09/12/2021 2:04 PM CDT Respiratory Rate 16 06/27/2020 10:1 0 AM 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 Oxygen Saturation 99% 09/12/2021 2:04 PM CDT Inhaled Oxygen Concentration - - Weight 87.5 kg (192 lb 14.4 oz) 09/12/2021 2:04 PM CDT Height 180.3 cm (5' 11 ) 09/12/2021 2:04 PM CDT Body Mass Index 26.9 09/12/2021 2:04 PM CDT Plan of Treatment Health Maintenance Due Date Last Done Comments Colorectal Cancer Screening Colonoscopy (10 Years) 1972 Annual Physical 11/01/1975 PHQ-2 (Physician [place]) 1984 Hepatitis C 1990 DTaP, Tdap and Td Vaccines ( 1 - Tdap) 11/01/1991 Hepatitis B Vaccines (1 of 3 - 19+ 3-dose series) 11/01/1991 Zoster Vaccines (1 of 2) 2022 COVID-19 Vaccine (3 - 2023-2 5 season) 2024 06/04/2021, 04/16/2021 Influenza Adult (#1) 2024 PHQ-2 (Physician [place]) 06/22/2024 Meningococcal B Vaccine Aged Out No l onger eligible based on patient's age to complete this topic Meningococcal Vaccine Aged Out No alec harshal eligible based on patient's age to complete this topic Pneumococcal Vaccine: Pediatrics (0 to 5 Years) and At-Risk Patients (6 to 64 Years) Aged Out No longer eligible b ased on patient's age to complete this topic RSV Immunizations Under 20 Months Aged Out No longer eligible b ased on patient's age to complete this topic Insurance [facility] Care Teams Waiter Waitress Relationship Specialty Start Date End Date Melvin Perkins MD [address] [address] PCP - General FAMILY PRACTICE 05/02/20
--- OUTSIDE RECORDS SUMMARY | 2024-09-04 17:00 | XMS_ITS | Clinical Summary ---
Author Organization [facility] Address [address] [place] [address] Phone Care Team Providers Care Jewel Flat Surfacer Name Role Phone Melvin Perkins MD Primary Care Provider [phone] Allergies Active Allergy Reactions Criticality Noted Date Comments Sulfa (Sulfonamide Antibiotics) Rash Low 07/23 Medications omeprazole (PriLOSEC) 40 mg Capsule, Delayed Release(E.C.) Take 20 mg by mouth daily. Takes as needed for heartburn 0 Active tadalafil (CIALIS) 5 mg tablet Take 5 mg by mouth daily. 3 Active testosterone cypionate (DEPO-TESTOSTER ONE) 200 mg/mL Oil INJECT 1/2 ML ONCE WEEKLY 0 Active CALCIUM CARBONATE-VITAM IN D3 ORAL Take by mouth. Acti ve ferrous sulfate 325 mg (65 mg iron) tablet Take 325 mg by mouth daily. 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 Gender Identity Not on file Sexual Orientation Not on file Last Filed Vital Signs Vital Sign Reading Time Taken Comments Blood Pressure 146/82 03/04/2023 2:17 PM CDT Pulse 70 03/04/2023 2:14 PM CDT Temperature 36.6 C (97.8 F) 03/04/2023 2:14 PM CDT Respiratory Rate 16 03/04/2023 2:14 PM CDT Oxygen Saturation 98% 03/04/2023 2:14 PM CDT Inhaled Oxygen Concentration - - Weight 86.1 kg (189 lb 12.8 oz) 03/04/2023 2:14 PM CDT Height 180.3 cm (5' 11 ) 08/06/2022 2:39 PM LABORER PRESTRESSED CONCRETE Body Mass Index 26.47 08/06/2022 2:39 PM LABORER PRESTRESSED CONCRETE Plan of Treatment Health Maintenance Due Date Last Done Comments DTAP/TDAP/TD VACCINES (1 - Tdap) 11/01/1991 HEPATITIS B VACCINES (1 of 3 - 19+ 3-dose series) 11/01/1991 COLORECTAL SCREENING 2017 Colorectal Cancer Screening 2017 FIT-DNA Q 3 years 2017 FIT/FOBT Q 1 year 2017 Flex Sig/CT Colonography Q 5 years 2017 ZOSTER VACCINE (1 of 2) 2022 INFLUENZA VACCINE (#1) 2024 COVID-19 Vaccine ( season) 2024, 04/16/[address] [place] [address] OPEN ACCESS O CIG OPEN ACCESS HMO Care Teams Jewel Flat Surfacer Relationship Specialty Start Date End Date Melvin Perkins MD [address] [place] [address] PCP - General Family Practice 03/10/18
--- OUTSIDE RECORDS SUMMARY | 2024-09-04 17:00 | XMS_ITS | Continuity of Care Document ---
Author Organization [facility] Address [address] [place] [address] Phone Care Team Providers Care Wire Fence Builder Name Role Phone Caden Valente MD Unavailable Unavailable Medications Medication Instructions Dosage Effective Dates (start - stop) Status Comments clomiphene citrate 50 mg tablet take 1 tablet by oral route every day 50 MG - Active Procedures Procedure Date New (Level 4) OFFICE/OUTPATIENT VISIT Advance Directives Directive Yes / No Effective Date File Name No Information Encounters Encounter Description Practice Location Reason(s) For Visit Diagnoses Date Provider Providers Copied on Encounter [facility], [address] [place] [address], [address] [place] [address], tel:[phone] [facility] No Information 0 Ambrosio Negrete. [address] [place] [address], [address] [place] [address] , . tel: [phone] New (Level 4) OFFICE/OUTPAT IENT VISIT [facility], [address] [place] [address], [address] [place] [address], tel:[phone] [facility] Rash (chief complaint) Urticaria Sep- 0 Nikolay Alves. [address] [place] [address], [address] [place] [address] , . tel: [phone] Referring Provider: Melvin Gray, [address] [place], [place], [address]. tel:[phone] Family History Family Member Type Diagnosis Age At Onset No Information Payers Payer name Insurance type Covered alliance party ID Kandy PRATT (s) [id number] Social History Type Description Quantity Date Captured Comments Sex Male Smoking Status No Information Chief Complaint And Reason For Visit No Information Reason For Referral Reason For Referral No Information History Of Present Illness Encounter Date Complaint History Of Prese nt Illness Rash This visit takes place over telehealth video platform ([employer]) with the patient in their homeThis is his initial visit. The reason for today's visit is a rash. On a Thursday evening in August, he developed itching. Overnight he developed hives and a fever. He went to his PCP's office the next day, he was given a steroid injection. He still had hives and was prescribed oral steroids. He was also taking Benadryl. Rash was mostly resolved by Thu. Rash was itchy. Last Thursday, he developed bumps. He took a shower and finished the prednisone he didn't finish (it made his heart race) and a Benadryl.The first time it happened Sun evening and the second time it happened in the morning. Tmax 100.5 with first episode. No URI symptoms. He thinks he has GERD. He had been taking ranitidine. Just before he became itchy the first time, urine looked coke-colored. PCP obtained labs. About 1-2 weeks before symptoms started, he was started on Bactrim. He was on Bactrim for a lump near his testicles. No recent tic bites. He typically eats mammalian meat, including this week, without problems. He is now on symptom free. Topical steroid cream did not seem to help. The Thur before he developed the rash, he mowed for the first time that year. He recalls his legs itching that night. He sent me a pics of his shins. Lesions were red and pruritic. He states it had a purple hue and lesions were not particularly raised. PMH: HivesSurgeries: NoneNKDAFH: No hives or itching. Social: He works for [employer]. He has 1 dog. He does not smoke. Functional Status Date Functional Assessmen t No Information Instructions Date Instruction Additional Infor mation No Information Assessments Type Assessment Date No Information Patient Care Teams Name Effective Dates (start - stop) Status Members No Information
--- OUTSIDE RECORDS SUMMARY | 2024-09-04 17:00 | XMS_ITS | Clinical Summary ---
Author Organization [facility] Address [address] [place] [address] Care Team Providers Care Street Light Inspector Name Role Phone Melvin Perkins MD Primary Care Provider Allergies Active Allergy Reactions Criticality Noted Date [...] mg total) by mouth daily Active iron ag,ko-L-LB3-B12 -Zn-sa-sto 150 mg iron- 60 mg-1 mg [...] facial asymmetry 08/11/2012 Arthralgia of hip 05/29/2011 Encounters Date Type Department Care Team Description 09/04/2024 9:20 AM CDT E-Visit [facility] Virtual Care [address] [place] [address] Silvia Huerta NP Your Medications 09/04/2024 Patient Self-Triage [facility] HealthCare/ Physicians [address] [place] [address] Mychart, Generic Provider 09/03/2024 Results Follow-Up [facility] Medical [facility] at [address] [address] Becky Roberts NP 09/02/2024 9:06 AM CDT - 09/02/2024 11:59 PM CDT Hospital Encounter [facility] [address] [place] [address] Pharyngitis, unspecified etiology Discharge Disposition: Discharge to home or self care 09/02/2024 9:00 AM CDT Office Visit [facility] at [address] [address] Becky Roberts NP Pharyngitis, unspecified etiology (Primary Dx) 06/13/2024 Orders Only [facility] Orthopaedic Surgery [address] [facility] 1st Floor [address] [place] [address] Khloe Cramer NP Chronic midline low back pain without sciatica (Primary Dx) from Last 3 Months Surgical History Surgery Date Site/Laterality Comments LASIK 06/22/2006 VASECTOMY 06/22/2009 FL UPPER GI AIR CONTRAST W KUB 05/28/2022 Left Medical History Medical History Date Comments GERD (gastroesophageal reflux disease) 02/20/2019 Hypertension 02/20/2021 borderline, no m eds yet Kidney stone 06/22/2000 Family History Medical History Relation Name Comments Hypertension Father Eh Santos No Known Problems Mother Relation Name Status Comments Father Eh Santos Alive Mother Alive Social History Tobacco Use [...] on file Legal Sex 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 Gender Identity Not on file Sexual Orientation Not on file 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 Not on file Not on file Obstetrics History Last Filed Vital Signs Vital Sign Reading [...] 11/26/2023 5:58 PM CDT Plan of Treatment Health Maintenance Due Date Last Done Comments Colon Cancer Screening-Colonoscopy 1972 Depression Screening 1972 Hepatitis C Screening 1972 Prostate Cancer Screening-PSA 1972 DTaP/Tdap/Td Vaccine (1 - Tdap) 11/01/1983 Hepatitis B Screening 1990 Regular Well Visit/Exam 18-64 1990 Zoster Vaccine (1 of 2) 2022 Covid-19 Vaccine (3 2023-2 5 season) 2024 06/04/2021, 04/16/2021 Influenza Vaccine (#1) 2024 Pneumococcal vaccine <65 Aged Out No longer eligible based on patient's age to complete this topic Procedures Procedure Name Priority Date/Time Associated Diagnosis Comments THROAT CULTURE Routine 09/02/2024 9:06 AM CDT Pharyngitis, unspecified etiology POCT RAPID STREP Routine 09/02/2024 9:05 AM CDT Pharyngitis, unspecified etiology from Last 3 Months Results * Throat culture Throat (09/02/2024 9:06 AM CDT) Report Final Report: No growth of pathogens. Comment:Testing performed by : [facility], [address] [place]., [address] Throat 09/02/2024 9:06 AM CDT 09/02/2024 6:34 PM CDT Narrative ZULEIMA [place] 09/03/2024 4:03 PM CDT Testing performed by [facility] Microbiology Laboratory ([phone]). us Becky Roberts NP LAB MICROBIOLOGY - GENERAL ORD ERABLES Final Result ZULEIMA [id number] Department of [place] [address] * POCT rapid strep A (09/02/2024 9:05 AM CDT) Rapid Strep A, POC Negative Negative Swab 09/02/2024 9:05 AM CDT us Becky Roberts NP POINT OF CARE TEST ORDERABLES Final Result from Last 3 Months Insurance CIGNA CIGNA CIGNA Care Teams Street Light Inspector Relationship Specialty Start Date End Date Melvin Perkins MD PCP - General 04/27/17
[2024-09-04 17:33] VITALS: BP 171/102; PULSE 66; RESP 16; TEMP 36.4; O2SAT 98
[2024-09-04 18:06] LABS: Add Urine Microscopic? YES; Appearance Urine Clear (Clear); Bacteria Urine None Seen /hpf; Bilirubin Urine Negative (Negative); Blood Urine 2+ (Negative); Color Urine Yellow (Yellow); Glucose Urine UA Negative (Negative); Ketones Urine Negative (Negative); Leukocyte Esterase Ur Negative LEU/UL (Negative); Nitrate Urine Negative (Negative); Non Pathogenic Casts 0-2; Protein Urine Negative (Negative); RBC Urine 0-2 /hpf (0-2); Specific Grav Ur 1.005 (1.001-1.035); Squamous Epithelial Cell Urine None Seen /hpf (Few); Urobilinogen Urine 0.2 mg/dL (<2.0); WBC Urine 0-5 /hpf (0-3); pH Urine 6.5 (5.0-9.0)
--- OUTSIDE RECORDS SUMMARY | 2024-09-04 18:30 | XMS_ITS | Encounter Summary ---
Author Organization [employer] Address 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 Gender Identity Not on file Sexual Orientation [...] MD HEMATOLOGY ORDERABLES Edited Performing Organization Address City/[facility] de Phone Number INTERFACE SYSTEM Refer to [...] MD HEMATOLOGY ORDERABLES Edited Performing Organization Address [facility] de Phone Number INTERFACE SYSTEM Refer to [...] MD CHEMISTRY ORDERABLES Edited Performing Organization Address City/[facility] Co de Phone Number INTERFACE SYSTEM [...] and non- Americans is available on the [facility] Intranet at: [email or web address] Select: Lab Policies and Procedures Select: Reference Ranges - GFR 09/14/2006 8:09 PM CDT us Aayush Carbajal MD CHEMISTRY ORDERABLES Edited Performing Organization Address City/[facility] de Phone Number INTERFACE SYSTEM Refer to clinic/hospital department * AMYLASE (09/14/2006 8:09 PM CDT) AMYLASE 45 28 - 100 U/L INTERFACE SYSTEM 09/14/2006 8:09 PM CDT us Aayush Carbajal MD CHEMISTRY ORDERABLES Edited Performing Organization Address [facility] Phone Number INTERFACE SYSTEM Refer to clinic/hospital department documented in this encounter Visit Diagnoses Diagnosis Other acute pain- Primary documented in this encounter Care Teams Tankage Grinder Relationship Specialty Start Date End Date Melvin Perkins MD [address] [place] [address] PCP - General Family Practice 03/10/18 documented as of this encounter
--- OUTSIDE RECORDS SUMMARY | 2024-09-04 18:30 | XMS_ITS | Clinical Summary ---
Author Organization [facility] Address [facility] [place] [address] Care Team Providers Care Peace Officer Name Role Phone Melvin Perkins MD Primary Care Provider [phone] Allergies Active Allergy Reactions Criticality Noted Date [...] Respiratory Rate 16 06/27/2020 10:1 0 AM SPANNER OPERATOR Oxygen Saturation 99% 09/12/2021 2:04 PM CDT Inhaled Oxygen Concentration - - Weight 87.5 kg (192 lb 14.4 oz) 09/12/2021 2:04 PM CDT Height 180.3 cm (5' 11 ) 09/12/2021 2:04 PM CDT Body Mass Index 26.9 09/12/2021 2:04 PM CDT Plan of Treatment Health Maintenance Due Date Last Done Comments Colorectal Cancer Screening Colonoscopy (10 Years) 1972 Annual Physical 11/01/1975 PHQ-2 (Physician [place]) 1984 Hepatitis C 1990 DTaP, Tdap and Td Vaccines ( 1 - Tdap) 11/01/1991 Hepatitis B Vaccines (1 of 3 - 19+ 3-dose series) 11/01/1991 Zoster Vaccines (1 of 2) 2022 COVID-19 Vaccine (3 - 2023-2 5 season) 2024 06/04/2021, 04/16/2021 Influenza Adult (#1) 2024 PHQ-2 (Physician [place]) 06/22/2024 Meningococcal B Vaccine Aged Out No [...] patient's age to complete this topic Insurance [facility] Care Teams Peace Officer Relationship Specialty Start Date End Date Melvin Perkins MD [address] [address] PCP - General FAMILY PRACTICE 05/02/20
--- OUTSIDE RECORDS SUMMARY | 2024-09-04 18:30 | XMS_ITS | Encounter Summary ---
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 Comment:Testing performed by : [facility], [address] [place]., [address] Throat 09/02/2024 9:06 AM CDT 09/02/2024 6:34 PM CDT Narrative ZULEIMA ALBARADO - 09/03/2024 4:03 PM CDT Testing performed by [facility] Microbiology Laboratory ([phone]). Becky Roberts ACCOUNTANCY PROFESSOR LAB MICROBIOLOGY - GENERAL ORD ERABLES Final Result ZULEIMA [id number] Department [place] [address] documented in this encounter Visit Diagnoses Diagnosis Pharyngitis, unspecified etiology documented in this encounter Care Teams Barrel Coater Relationship Specialty Start Date End Date Melvin Perkins MD PCP - General 04/27/17 documented as of this encounter
--- OUTSIDE RECORDS SUMMARY | 2024-09-04 18:30 | XMS_ITS | Clinical Summary ---
Author Organization [facility] Address [address] [place] [address] Care Team Providers Care Card Puncher Name Role Phone Melvin Perkins MD Primary Care Provider [phone] Allergies Active Allergy Reactions Criticality Noted Date [...] mg total) by mouth daily Active iron ag,gu-G-JR2-B12 -Zn-sa-sto 150 mg iron- 60 mg-1 mg [...] Team Description 09/04/2024 9:20 AM CDT E-Visit [facility] Virtual Care [address] [place] [address] Silvia Huerta NP Your Medications 09/04/2024 Patient Self-Triage [facility] HealthCare/ Physicians [address] [place] [address] Mychart, Generic Provider 09/03/2024 Results Follow-Up [facility] Medical [facility] at [address] [address] Becky Roberts NP 09/02/2024 9:06 AM CDT - 09/02/2024 11:59 PM CDT Hospital Encounter [facility] [address] [place] [address] Pharyngitis, unspecified etiology Discharge Disposition: Discharge to home or self care 09/02/2024 9:00 AM CDT Office Visit [facility] at [address] [address] Becky Roberts NP Pharyngitis, unspecified etiology (Primary Dx) 06/13/2024 Orders Only 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 Comment:Testing performed by : [facility], [address] [place]., [address] Throat 09/02/2024 9:06 AM CDT 09/02/2024 6:34 PM CDT Narrative ZULEIMA [place] 09/03/2024 4:03 PM CDT Testing performed by [facility] Microbiology Laboratory ([phone]). us Becky Roberts NP LAB MICROBIOLOGY - GENERAL ORD ERABLES Final Result ZULEIMA [id number] Department [place] [address] * POCT rapid strep A (09/02/2024 9:05 AM CDT) Rapid Strep A, POC Negative Negative Swab 09/02/2024 9:05 AM CDT us Becky Roberts NP POINT OF CARE TEST ORDERABLES Final Result from Last 3 Months Insurance CIGNA CIGNA CIGNA Care Teams Card Puncher Relationship Specialty Start Date End Date Melvin Perkins MD PCP - General 04/27/17
--- OUTSIDE RECORDS SUMMARY | 2024-09-04 18:30 | XMS_ITS | Clinical Summary ---
Author Organization [facility] Address [address] [place] [address] Phone Care Team Providers Care Warehouse Foreman Name Role Phone Melvin Perkins MD Primary Care Provider [phone] Allergies Active Allergy Reactions Criticality Noted Date [...] on file Legal Sex Male 3:06 AM OUTSIDE PROPERTY AGENT Gender Identity Not on file Sexual Orientation [...] cm (5' 11 ) 08/06/2022 2:39 PM OUTSIDE PROPERTY AGENT Body Mass Index 26.47 08/06/2022 2:39 PM OUTSIDE PROPERTY AGENT Plan of Treatment Health Maintenance Due Date [...] COVID-19 Vaccine ( season) 2024, 04/16/[address] [place] [address] [address] OPEN ACCESS O CIG OPEN ACCESS HMO Care Teams Warehouse Foreman Relationship Specialty Start Date End Date Melvin Perkins MD [address] [place] [address] PCP - General Family Practice 03/10/18
--- OUTSIDE RECORDS SUMMARY | 2024-09-04 18:30 | XMS_ITS | Encounter Summary ---
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
--- OUTSIDE RECORDS SUMMARY | 2024-09-04 18:30 | XMS_ITS | Continuity of Care Document ---
Author Organization [facility] Address [address] [place] [phone] Phone Care Team Providers Care Rivet Sticker Name Role Phone Caden Valente MD Unavailable [...] Encounter [facility], [address] [place] [address], [address] [place] [address], tel:[phone] [facility] No Information 0 Ambrosio Negrete. [address] [place] [address], [address] [place] [address] , . tel: [phone] New (Level 4) OFFICE/OUTPAT IENT VISIT [facility], [address] [place] [address], [address] [place] [address], tel:[phone] [facility] Rash (chief complaint) Urticaria Sep- 0 Nikolay Alves. [address] [place] [address], [address] [place] [address] , . tel: [phone] Referring Provider: Melvin Gray, [address] Valencia, [place], [address]. tel:[phone] Family History Family Member Type Diagnosis Age At Onset No Information Payers Payer name Insurance type Covered libertarian ID Kandy PRATT (s) [id number] Social History Type Description Quantity Date Captured Comments Sex Male Smoking Status No Information Chief Complaint And Reason For Visit No Information Reason For Referral Reason For Referral No Information History Of Present Illness Encounter Date Complaint History Of Prese nt Illness Rash This visit takes place over telehealth video platform ([email or web address]) with the patient in their homeThis is [...] hives or itching. Social: He works for [employer]. He has 1 dog. He does not smoke. Functional Status Date Functional Assessmen t No Information Instructions Date Instruction Additional Infor mation No Information Assessments Type Assessment Date No Information Patient Care Teams Name Effective Dates (start - stop) Status Members No Information
--- OUTSIDE RECORDS SUMMARY | 2024-09-04 18:30 | XMS_ITS | Encounter Summary ---
Author Organization [facility] Healthcare Address [address] [place] [address] Care Team Providers Care Underwear Hemmer Name Role Phone Melvin Perkins MD Primary Care Provider [phone] Reason for Visit * Reason Comments Sinus Problem Entered automaticall y based on patient selection in Nepris. 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 He was given instructions regarding follow up and timeframe if symptoms worsen or don???t improve. These instructions were included in the [employer]ris message reply to the patient. Patient Instructions [...] drainage documented in this encounter Care Teams Underwear Hemmer Relationship Specialty Start Date End Date Melvin Perkins MD PCP - General 04/27/17 documented as of this encounter
--- OUTSIDE RECORDS SUMMARY | 2024-09-04 18:30 | XMS_ITS | Encounter Summary ---
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
--- OUTSIDE RECORDS SUMMARY | 2024-09-04 18:30 | XMS_ITS | Referral Summary ---
Author Organization [facility] Address [address] [place] [address] Care Team Providers Care Dough Mixer Operator Name Role Phone Mlevin Perkins MD Primary Care Provider [phone] Encounters Date Type Department Care Team Description 09/04/2024 9:20 AM CDT E-Visit [facility] Medical Group Virtual Care [address] [place] [phone] Silvia Huerta NP Your Medications 09/04/2024 Patient Self-Triage [facility] HealthCare/ Physicians [address] [place] [address] Mychart, Generic Provider 09/03/2024 Results Follow-Up [facility] Medical [facility] Convenient Care at [address] [phone] Becky Roberts NP 09/02/2024 9:06 AM CDT - 09/02/2024 11:59 PM CDT Hospital Encounter [facility] [address] [place] [address] Pharyngitis, unspecified etiology Discharge Disposition: Discharge to home or self care 09/02/2024 9:00 AM CDT Office Visit [facility] Medical [facility] Convenient Care at [address] [phone] Becky Roberts NP Pharyngitis, unspecified etiology (Primary Dx) 06/13/2024 Orders Only [facility] Orthopaedic Surgery [address] [place] [address] [address] [place] [address] Khloe Cramer, BHAVIK Chronic midline low back [...] mg total) by mouth daily Active iron ag,qe-K-MC4-B12 -Zn-sa-sto 150 mg iron- 60 mg-1 mg [...] on file 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 Comment:Testing performed by : [facility], [address] [facility], [place]., [address] Throat 09/02/2024 9:06 AM CDT 09/02/2024 6:34 PM CDT Narrative ZULEIMA VERENA - 09/03/2024 4:03 PM CDT Testing performed by [facility] Microbiology Laboratory ([phone]). Becky Roberts NP LAB MICROBIOLOGY - GENERAL ORD ERABLES Final Result ZULEIMA [id number] [address] [place] [address] * POCT rapid strep A (09/02/2024 9:05 AM CDT) [facility] Signature Rapid Strep A, POC Negative Negative Swab 09/02/2024 9:05 AM CDT Becky Roberts NP POINT OF CARE TEST ORDERABLES Final Result from Last 3 Months Insurance CIGNA CIGNA CIGNA Care Teams Dough Mixer Operator Relationship Specialty Start Date End Date Melvin Perkins MD PCP - General 04/27/17
--- NOTE | 2024-09-04 18:38 | ED_ITS ---
HPI - Abdominal Pain General Chief Complaint: Abdominal Pain Stated Complaint: abd pain Time Seen by Provider: 09/04/24 18:18 Source: patient Mode of arrival: ambulatory Limitations: no limitations History of Present Illness HPI narrative: This is a 53 year old male that presents to the ER for right sided abdominal pain. Ongoing intermittently today. Reports some dysuria. Denies fever, vomiting, hematuria. Related Data Home Medications ?Medication ?Instructions ?Recorded ?Confirmed ?Last Taken ?Type cholecalciferol (vitamin D3) 25 25 mcg PO DAILY 09/18/22 08/16/24 09/08/23 History mcg (1,000 unit) capsule ferrous sulfate 325 mg (65 mg 325 mg PO DAILY 09/18/22 08/16/24 09/08/23 History iron) tablet tadalafil 5 mg tablet 5 mg PO DAILY 09/18/22 08/16/24 Unknown History testosterone enanthate 50 mg/0.5 50 mg subcut WEEKLY 04/30/23 08/16/24 09/08/23 History mL subcutaneous auto-injector Allergies Allergy/AdvReac Type Severity Reaction Status Date / Time ranitidine (From Zantac) Allergy Intermediate Rash Verified 03/28/24 09:40 sulfamethoxazole (From AdvReac Intermediate facial Verified 03/28/24 09:40 Bactrim) swelling trimethoprim (From Bactrim) AdvReac Intermediate facial Verified 03/28/24 09:40 swelling Review of Systems 2 Review of Systems: CONSTITUTIONAL: Denies fever GASTROINTESTINAL: Reports abdominal pain. Denies nausea, vomiting, or diarrhea. GENITOURINARY: Reports dysuria. Denies hematuria. All systems reviewed & are unremarkable except as noted in HPI and below PMFSH Past Medical History Medical History Dyspepsia Low back pain Unknown status of immunity to COVID-19 virus Elevated blood pressure reading without diagnosis of hypertension Elevated blood pressure reading in office with diagnosis of hypertension Numbness and tingling in both hands Pleural effusion Leukocytopenia, unspecified Other fatigue Belching Bloating Adenomatous colon polyp Gastritis Colon cancer screening Chest tightness GERD without esophagitis Surgical History Surgical History No pertinent past surgical history Family History Family History Father Hypertension Mother No problems noted. Sibling Obesity Social History Social History Smoking status: Never smoker Second hand tobacco smoke exposure: No Alcohol intake: current Alcohol use details: 2-3 drinks most days Substance use: never Substance use type: does not use Do You Feel Safe in your Home?: Yes Lack of Transportation: No Lack of Food: Never True Current Housing: I Have Housing Concerned About Future Housing: No Difficulty Paying Gas/Electric Bills: No Difficulty Paying for Meds: No Currently Unemployed: No Education: Bachelor's Degree Difficulty w/ Childcare or Family Care: No Living arrangements: with family Additional living arrangements comments: and kids Occupation/Education: occupation Additional occupation/education comments: [employer] Gender identity (if verbalized by the patient): Male Sexual Orientation (if Verbalized by the Patient): Straight or Heterosexual Spiritual care concerns: No Agree to blood products: Yes Exam 2 Narrative: GENERAL: Well-appearing, well-nourished, and in no acute distress. HEAD: Normocephalic, atraumatic. EYES: EOMI. CHEST: Clear to auscultation. No respiratory distress. No wheezes rales or rhonchi HEART: Regular rate and rhythm. No murmur heard. Normal peripheral pulses. ABDOMEN: Soft, nontender, nondistended, normal active bowel sounds. EXTREMITIES: Normal range of motion. No edema. SKIN: Warm, dry, no rash. NEURO: No focal deficits. Alert and oriented x3. PSYCH: Normal mood and affect Course Course Emergency Course: patient updated on his workup and agrees with plan of care Vital Signs Vital signs: Vital Signs Temperature 97.5 F L 09/04/24 17:33 Pulse Rate 66 09/04/24 17:33 Respiratory Rate 16 09/04/24 17:33 Blood Pressure 171/102 H 09/04/24 17:33 Pulse Oximetry 98 09/04/24 17:33 Oxygen Delivery Room Air 09/04/24 17:33 Temperature 97.5 F L 09/04/24 17:33 Pulse Rate 60 09/04/24 19:02 Respiratory Rate 18 09/04/24 19:02 Blood Pressure 152/92 H 09/04/24 19:02 Pulse Oximetry 97 09/04/24 19:02 Oxygen Delivery Room Air 09/04/24 17:33 MDM - Abdominal Pain MDM Narrative Medical decision making narrative: Patient presents the emergency department for right-sided abdominal pain. Ongoing intermittently today. He is afebrile and nontoxic appearing. Cbc without leukocytosis. Metabolic panel with normal kidney function. Urine with red blood cells, no evidence of infection. CT abdomen pelvis shows a 10 x 6 mm bladder calcification, may be in the distal UVJ or recently passed. [id number] right ureterectasis and mild ureteral stranding. patient updated on his workup and agrees with plan of care. He is to follow-up with urology. He was given warnings to return to the ER Differential Diagnosis Differential diagnosis: Likely acute appendicitis and calculus of kidney Lab Data Attestation: I reviewed the patient's lab results. 09/04/24 19:03 09/04/24 19:03 Labs: Lab Results 09/04/24 09/04/24 Range/Units 17:52 19:03 WBC 8.3 (4.5-10.0) K/mm3 RBC 5.14 (4.6-6.20) M/mm3 Hgb 15.5 (14.0-18.0) g/dL Hct 46.0 (42.0-52.0) % MCV 89.5 (80-100) fl MCH 30.2 (26-34) pg MCHC 33.7 (32-36) g/dl RDW 13.2 (11.5-14.5) % Plt Count 151 (150-375) k/mm3 MPV 10.5 H (7.4-10.4) fl Immature Gran % (Auto) 0.4 (0-0.5) % Neut % (Auto) 84.0 H (45.5-73.1) % Lymph % (Auto) 9.8 L (18.3-44.2) % [place] % (Auto) 4.0 (2.6-8.5) % Eos % (Auto) 1.1 (0-4.4) % Baso % (Auto) 0.7 (0.2-1.2) % Lymph # (Auto) 0.81 L (0.9-3.2) K/mm3 [place] # (Auto) 0.3 (0.1-0.6) K/mm3 Eos # (Auto) 0.1 (0-0.3) K/mm3 Baso # (Auto) 0.1 (0.0-0.1) K/mm3 Abs Immat Gran (auto) 0.03 (0.00-0.031) K/mm3 Absolute Neuts (auto) 7.0 H (1.3-6.7) K/mm3 Absolute Nucleated RBC 0.000 (0.0-0.012) K/mm3 Nucleated RBC % 0.0 (0.0-0.2) % Sodium 136 L (137-145) mmol/L Potassium 4.2 (3.4-5.0) mmol/L Chloride 102 (98-107) mmol/L Carbon Dioxide 27 (22-30) mmol/L Anion Gap 7 (4-12) mmol/L BUN 18 (9-20) mg/dL Creatinine 1.04 (0.7-1.3) mg/dL Estim Creat Clear Calc 79 ml/min Estimated GFR > 60 (59 - ) Glucose 112 H (65-110) mg/dL Calcium 9.0 (8.4-10.2) mg/dL Total Bilirubin 0.5 (0.2-1.3) mg/dL AST 30 (17-59) U/L ALT 27 (6-50) U/L Alkaline Phosphatase 60 (38-126) U/L Total Protein 7.0 (6.3-8.2) g/dL Albumin 4.2 (3.5-5.1) g/dL Lipase 99 (23-300) U/L Urine Color Yellow (Yellow) Urine Appearance Clear (Clear) Urine pH 6.5 (5.0-9.0) Ur Specific [place] 1.005 (1.001-1.035) Urine Protein Negative (Negative) mg/dL Urine Glucose (UA) Negative (Negative) mg/dL Urine Ketones Negative (Negative) mg/dL Ur Blood (Man) 2+ H (Negative) Urine Nitrate Negative (Negative) Urine Bilirubin Negative (Negative) Urine Urobilinogen 0.2 (<2.0) mg/dL Leukocyte Esterase Rfl Negative (Negative) GINGER/UL Urine RBC 0-2 (0-2) /hpf Urine WBC 0-5 (0-3) /hpf Ur Squamous Epith Cells None seen (Few) /hpf Urine Bacteria None seen /hpf Urine Casts 0-2 Imaging Data Radiologist's impression: ITS Impressions Abdomen/Pelvis CT 09/04/24 20:04 IMPRESSION: Mild mesenteric panniculitis. 10 x 6 mm bladder calcification, may be in the distal UVJ or recently passed. Correlate for recent change and clinical symptoms. Mild-moderate right ureterectasis and mild ureteral stranding. Lack of significant obstructive uropathy on the right increased the likelihood of stone passage. Mild cystitis. Critical Care Time Critical Care Time Critical Care Time: No Discharge Plan Discharge Clinical Impression: Kidney stone on right side Patient Disposition: Home, Self-Care Condition: Stable Instructions: Kidney Stones (ED), How to Strain Your Urine (ED) Additional Instructions: Return to the ER if you experience fever, abdominal pain with nausea and vomiting, you are unable to keep down liquids or solids, blood in the stool, pain or burning with urination, blood in the urine or any other symptoms that are concerning to you Remain well hydrated. Ffnx-erb-oclyiij pain medications as needed. Prescribed pain medication as needed. Take tamsulosin as prescribed. Strain your urine Follow up with Urology Patient Language: Uzbek Prescriptions: New tamsulosin 0.4 mg capsule 0.4 mg PO DAILY 5 Days Qty: 5 0RF hydrocodone-acetaminophen 5-325 mg tablet 1 tablet PO Q6H PRN (Reason: pain) Qty: 14 0RF No Action cholecalciferol (vitamin D3) 25 mcg (1,000 unit) capsule 25 mcg PO DAILY tadalafil 5 mg tablet 5 mg PO DAILY ferrous sulfate 325 mg (65 mg iron) tablet 325 mg PO DAILY testosterone enanthate 50 mg/0.5 mL auto-injector 50 mg subcut WEEKLY omeprazole 20 mg tablet,delayed release (DR/EC) 20 mg PO DAILY 90 Days Qty: 90 3RF amlodipine 5 mg tablet 5 mg PO DAILY Qty: 30 3RF Follow-up/Referrals: Mauricio French MD [Physician] - Melvin Perkins MD [Primary Care Provider] -
[2024-09-04 19:02] VITALS: BP 152/92; PULSE 60; RESP 18; O2SAT 97
[2024-09-04 19:08] LABS: Basophils Absolute Auto 0.1 K/mm3 (0.0-0.1); Basophils Percent Auto 0.7 % (0.2-1.2); Eosinophils Absolute Auto 0.1 K/mm3 (0-0.3); Eosinophils Percent Auto 1.1 % (0-4.4); Hemoglobin 15.5 g/dL (14.0-18.0); Immature Granulocyte Absolute 0.03 K/mm3 (0.00-0.031); Immature Granulocyte Percent A 0.4 % (0-0.5); Lymphocytes Absolute Auto 0.81 K/mm3 (0.9-3.2); Lymphocytes Percent Auto 9.8 % (18.3-44.2); Mean Corpuscular HGB Conc 33.7 g/dl (32-36); Mean Corpuscular Hemoglobin 30.2 pg (26-34); Mean Corpuscular Volume 89.5 fl (80-100); Mean Platelet Volume 10.5 fl (7.4-10.4); Monocytes Absolute Auto 0.3 K/mm3 (0.1-0.6); Platelet Count Result 151 k/mm3 (150-375); Red Blood Count 5.14 M/mm3 (4.6-6.20); Red Cell Distribution Width 13.2 % (11.5-14.5); White Blood Count 8.3 K/mm3 (4.5-10.0)
[2024-09-04 19:20] LABS: Alanine Aminotransferase 27 U/L (6-50); Albumin Level 4.2 g/dL (3.5-5.1); Alkaline Phosphatase 60 U/L (38-126); Anion Gap 7 mmol/L (4-12); Aspartate Amino Transferase 30 U/L (17-59); Bilirubin,Total 0.5 mg/dL (0.2-1.3); Blood Urea Nitrogen 18 mg/dL (9-20); Carbon Dioxide 27 mmol/L (22-30); Chloride 102 mmol/L (98-107); Estimated CRCL calculation 79 ml/min; Estimated Glomerular Filt Rate > 60; Glucose 112 mg/dL (65-110); Lipase 99 U/L (23-300); Potassium 4.2 mmol/L (3.4-5.0); Sodium 136 mmol/L (137-145)
[2024-09-04] MEDS: TAMSULOSIN HCL 0.4 MG CAPSULE PO (20:55)
[2024-09-04] MEDS: HYDROcodone/acetaminophen (*CRX) 5-325 MG TABLET 1 TAB PO (20:55)
[2024-09-04 21:03] VITALS: BP 138/62; PULSE 66; RESP 18; O2SAT 98
== END 2024-09-04 21:05 | disposition home or self-care (01) ==
PROVIDERS: Emergency Medicine; Emergency Provider Physician Assistant; PCP Family Medicine
DX: N20.0 Calculus of kidney (principal); K21.9 Gastro-esophageal reflux disease without esophagitis; Z86.0101 Personal history of adenomatous and serrated colon polyps; K65.4 Sclerosing mesenteritis; N30.90 Cystitis, unspecified without hematuria
CPT/HCPCS: 36415; 74177; 80053; 81001; 83690; 85025; 99284; A9270; Q9967

== ENCOUNTER → 2025-03-13 | Outpatient (CLI) | payer OTHER, SELFPAY ==
--- OUTSIDE RECORDS SUMMARY | 2025-03-13 08:22 | XMS_ITS | Clinical Summary ---
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 Oxygen Saturation 99% 09/12/2021 2:04 PM CDT Inhaled Oxygen Concentration - - Weight 87.5 kg (192 lb 14.4 oz) 09/12/2021 2:04 PM CDT Height 180.3 cm (5' 11) 09/12/2021 2:04 PM CDT Body Mass Index 26.9 09/12/2021 2:04 PM CDT Plan of Treatment Health Maintenance Due Date Last Done Comments Colorectal Cancer Screening Colonoscopy (10 Years) 1972 Annual Physical 11/01/1975 Hepatitis C 1990 DTaP, Tdap and Td Vaccines ( 1 - Tdap) 11/01/1991 Hepatitis B Vaccines (1 of 3 - 19+ 3-dose series) 11/01/1991 Pneumococcal Vaccine: 50+ Years (1 of 1 - PCV) 2022 Zoster Vaccines (1 of 2) 2022 PHQ-2 (Physician [place]) 06/22/2024 COVID-19 Vaccine (3 - 2024-2 6 season) 2025 06/04/2021, 04/16/2021 Meningococcal B Vaccine Aged Out No l onger eligible based on patient's age to complete this topic Meningococcal Vaccine Aged Out No alec harshal eligible based on patient's age to complete this topic RSV Immunizations Under 20 Months Aged Out No longer eligible b ased on patient's age to complete this topic Insurance CIGNA Care Teams Security Investigator Relationship Specialty Start Date End Date Melvin Perkins MD [address] [place] [address] PCP - General FAMILY PRACTICE 05/02/20
--- OUTSIDE RECORDS SUMMARY | 2025-03-13 08:22 | XMS_ITS | Clinical Summary ---
Author Organization [facility] Address [address] [place] [address] Care Team Providers Care Street Superintendent Name Role Phone Melvin Perkins MD Primary Care Provider Allergies Active Allergy Reactions Criticality Noted Date Comments Sulfa (Sulfonamide Antibiotics) Rash Medium 04/22 Sulfa drugs Medications omeprazole (PriLOSEC) 40 mg capsule Take 1 capsule (40 mg total) by mouth daily 01/24/2021 Active testosterone cypionate (DEPO-TESTOTERO NE) 200 mg/mL injection INJECT 1/2 ML ONCE WEEKLY 11/23/2020 Active tadalafiL (CIALIS) 5 mg tablet Take 1 tablet (5 mg total) by mouth daily Active iron ag,ax-B-HO1-B12 -Zn-sa-sto 150 mg iron- 60 mg-1 mg tablet 08/20/2022 Acti ve phytonadione (VITAMIN K1) 5 mg tablet Take by mouth once Active cholecalciferol , vitamin D3, (VITAMIN D3 ORAL) Take by mouth Active amLODIPine (NORVASC) 5 mg tablet Take 1 tablet (5 mg total) by mouth daily 11/02/2023 Active magnesium citrate and oxide (MAGNESIUM CITRATE,MAG OXIDE ORAL) Take by mouth Active ferrous sulfate (IRON ORAL) Take by mouth Active Active Problems Problem Noted Date Diagnosed Date Seasonal allergic rhinitis due to pollen 025 Assessment & Plan (2024 8:02 AM CDT): Blood allergy testing Chest pain 01/13/2022 Enchondroma of humerus, 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 01/13/2022 Gastroesophageal reflux disease 06/27/2020 Assessment & Plan (2024 8:02 AM CDT): Blood allergy testing Continue Omeprazole (Prilosec) 40 mg 30-60 minutes prior to any other medication, food or fluids other than water 64 ounces of caffeine free and soda free fluid daily Laryngopharyngeal reflux discussed and Handout provided Consider adding Pepcid if no improvement Cough 06/27/2020 Abnormal finding on lung imaging 06/27/2020 Sprain of anterior talofibular ligament of right ankle 12/22/2016 Sprain of tarsometatarsal joint of left foot 08/2016 Disorder of bone 04/21/2016 Pain in the shoulder 04/21/2016 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 Arthralgia of hip 05/29/2011 Surgical History Surgery Date Site/Laterality Comments LASIK [...] on file 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 Gender Identity Not on file Sexual Orientation Not on file 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 Not on file Not on file Obstetrics History Last Filed Vital Signs Vital Sign Reading Time Taken Comments Blood Pressure 134/73 2024 7:34 AM CDT Pulse 76 2024 7:34 AM CDT Temperature 36.9 C (98.5 F) 09/27/2024 10:08 AM CDT Respiratory Rate 18 2024 7:34 AM CDT Oxygen Saturation 98% 2024 7:34 AM CDT Inhaled Oxygen Concentration - - Weight 93 kg (205 lb) 2024 7:34 AM CDT Height 180.3 cm (5' 10.98) 2024 7:34 AM C DT Body Mass Index 28.6 2024 7:34 AM CDT Plan of Treatment Health Maintenance Due Date Last Done Comments Colon Cancer Screening-Colonoscopy 1972 Depression Screening 1972 Hepatitis C Screening 1972 Prostate Cancer Screening-PSA 1972 DTaP/Tdap/Td Vaccine (1 - Tdap) 11/01/1983 Hepatitis B Screening 1990 Regular Well Visit/Exam 18-64 1990 Zoster Vaccine (1 of 2) 2022 Covid-19 Vaccine (3 - 2024-2 6 season) 2025 06/04/2021, 04/16/2021 Influenza Vaccine (#1) 2025 Pneumococcal vaccine <65 Aged Out No longer eligible based on patient's age to complete this topic Insurance CIGNA CIGNA CIGNA Care Teams Street Superintendent Relationship Specialty Start Date End Date Melvin Perkins MD PCP - General 04/27/17
--- OUTSIDE RECORDS SUMMARY | 2025-03-13 08:22 | XMS_ITS | Encounter Summary ---
Author Organization [employer] Address 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 Gender Identity Not on file Sexual Orientation [...] MD HEMATOLOGY ORDERABLES Edited Performing Organization Address [facility] de Phone Number INTERFACE SYSTEM Refer to [...] MD HEMATOLOGY ORDERABLES Edited Performing Organization Address [facility] de Phone Number INTERFACE SYSTEM Refer to [...] MD CHEMISTRY ORDERABLES Edited Performing Organization Address City/[facility] de Phone Number INTERFACE SYSTEM Refer [...] and non- Americans is available on the [facility] Intranet at: [email or web address] Select: Lab Policies and Procedures Select: Reference Ranges - GFR 09/14/2006 8:09 PM CDT us Aayush Carbajal MD CHEMISTRY ORDERABLES Edited Performing Organization Address City/[facility] de Phone Number INTERFACE SYSTEM Refer to clinic/hospital department * AMYLASE (09/14/2006 8:09 PM CDT) AMYLASE 45 28 - 100 U/L INTERFACE SYSTEM 09/14/2006 8:09 PM CDT us Aayush Carbajal MD CHEMISTRY ORDERABLES Edited Performing Organization Address [facility] de Phone Number INTERFACE SYSTEM Refer to clinic/hospital department documented in this encounter Visit Diagnoses Diagnosis Other acute pain- Primary documented in this encounter Care Teams Hair Or Beauty Salon Assistant Relationship Specialty Start Date End Date Melvin Perkins MD [address] [place] [address] PCP - General Family Practice 03/10/18 documented as of this encounter
--- OUTSIDE RECORDS SUMMARY | 2025-03-13 08:22 | XMS_ITS | Clinical Summary ---
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 Gender Identity Not on file Sexual Orientation [...] 2:14 PM CDT Height 180.3 cm (5' 11) 08/06/2022 2:39 PM CHICKEN HANGER Body Mass Index 26.47 08/06/2022 2:39 PM CHICKEN HANGER Plan of Treatment Health Maintenance Due Date Last Done Comments DTAP/TDAP/TD VACCINES (1 - Tdap) 11/01/1991 HEPATITIS B VACCINES (1 of 3 - 19+ 3-dose series) 11/01/1991 COLORECTAL SCREENING 2017 Colorectal Cancer Screening 2017 FIT-DNA Q 3 years 2017 FIT/FOBT Q 1 year 2017 Flex Sig/CT Colonography Q 5 years 2017 ZOSTER VACCINE (1 of 2) 2022 INFLUENZA VACCINE (#1) 2025 COVID-19 Vaccine ( season) 2025, 04/16/[address] [place] [address] [place] [address] OPEN ACCESS O CIG OPEN ACCESS HMO Care Teams Museum Or Zoo Director Relationship Specialty Start Date End Date Melvin Perkins MD [address] [place] [address] PCP - General Family Practice 03/10/18
--- NOTE | 2025-04-09 20:39 | WPDSLEEPSTUD ---
Sleep Study Date of Study: 03/13/25 Ordering Provider: JOSELUIS Villagomez Interpreting Physician: Rocio Agrawal MD Sleep Study Type: CPAP Titration Height: 1.8 m Weight: 92.986 kg Body Mass Index: 28.5 Neck Circumference (inches): 17 Higginson: 6 Reason for Sleep Study Known obstructive sleep apnea; has sleep onset insomnia since starting to use APAP * 05/31/2024 HST using WatchPat showing AHI of 24.8, desaturation down to 87%; central apnea index of 6.3, elevated. * 02/23/2024 echo showed LV systolic function normal, estimated at 60-65% and biatrial enlargement without pulmonary hypertension. Sleep History Amauri Santos is a 54-year-old man diagnosed with obstructive sleep apnea on a home sleep test May 2024, ordered by his executive office manager. His apnea-hypopnea index was 24.8 with a central AHI of 6.3. It was recommended for him to have a CPAP titration, however he was started on APAP 5 cm to 15 cm with intolerance, AHI was low however he was not using it more than 4 hours, and the central apnea index was more than half of the total AHI. . His medical co-morbidities include insomnia, ETHAN, hemorrhoids, HTN, testosterone deficiency and GERD. There is a family history of sleep apnea, his father is 82 years old and uses a CPAP machine. He reports that he did not sleep well the night of the home sleep test. The home sleep test showed that he was asleep for 6 hours 44 minutes. He was started on auto-PAP with difficulty getting used to it. He has had more difficulty sleeping in the last 3-4 years even before he started using CPAP. Without CPAP, he is able to fall asleep within 10 minutes however using CPAP he cannot fall asleep easily. With or without CPAP he wakes around 2:00 a.m. and has tremendous difficulty returning to sleep. He has racing thoughts, to do list for the next day, and has had increased stress which may be contributing to his difficulty falling asleep and staying asleep. He reports difficulty breathing out while he is on CPAP. He had his ramp turned off on a prior sleep office visit. This seemed to help some but he could not take a breath in easily with an initial pressure of 5 cm. He has stopped sleeping with his dogs in the bed which he says helped quite a bit. He has cut back on alcohol and caffeine when he noted a clear pattern of nights when he was drinking alcohol, he was waking in the middle of the night around 2:00 a.m., with trouble returning to sleep. Nights he doesn't drink alcohol, he sleeps much better and feels better the next day. 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 He does not have morning headaches. He snores some, occasionally snorts himself awake but not often. He may occasionally doze off after work. He denies clenching or grinding his teeth. He denies kicking or jerking his legs excessively. He denies having a restless feeling in his legs. Normal bedtime is 9:00 p.m. on work days and at 10:00 p.m. on his days off. Using APAP, he has difficulty falling asleep. Without PAP, he falls asleep within 15 minutes. He reports getting 6 hours of sleep per night. His sleep is somewhat restorative on his days off. He denies taking any planned naps. He denies dream enactment behavior. He denies sleep walking. Habits: Tobacco: none Caffeine: 1-2 cups per day Alcohol: reduced recently Recreational substance: none PMFSH Past Medical History Medical History (Updated 04/09/25 @ 20:43 by Rocio Agrawal MD) ETHAN (obstructive sleep apnea) Dyspepsia Low back pain Unknown status of immunity to COVID-19 virus Elevated blood pressure reading without diagnosis of hypertension Elevated blood pressure reading in office with diagnosis of hypertension Numbness and tingling in both hands Pleural effusion Leukocytopenia, unspecified Other fatigue Belching Bloating Adenomatous colon polyp Gastritis Colon cancer screening Chest tightness GERD without esophagitis Surgical History Surgical History No pertinent past surgical history Family History Family History Father Hypertension Mother No problems noted. Sibling Obesity Social History Social History Smoking status: Never smoker Second hand tobacco smoke exposure: No Alcohol intake: current Alcohol use details: 2-3 drinks most days Substance use: never Substance use type: does not use Do You Feel Safe in your Home?: Yes Lack of Transportation: No Lack of Food: Never True Current Housing: I Have Housing Concerned About Future Housing: No Difficulty Paying Gas/Electric Bills: No Difficulty Paying for Meds: No Currently Unemployed: No Education: Bachelor's Degree Difficulty w/ Childcare or Family Care: No Living arrangements: with family Additional living arrangements comments: and kids Occupation/Education: occupation Additional occupation/education comments: [employer] Gender identity (if verbalized by the patient): Male Sexual Orientation (if Verbalized by the Patient): Straight or Heterosexual Spiritual care concerns: No Agree to blood products: Yes Medications Home Medications ?Medication ?Instructions ?Recorded ?Confirmed ?Type cholecalciferol (vitamin D3) 25 25 mcg PO DAILY 09/18/22 03/13/25 History mcg (1,000 unit) capsule ferrous sulfate 325 mg (65 mg 325 mg PO DAILY 09/18/22 03/13/25 History iron) tablet tadalafil 5 mg tablet 5 mg PO DAILY 09/18/22 03/13/25 History testosterone enanthate 50 mg/0.5 50 mg subcut WEEKLY 04/30/23 03/13/25 History mL subcutaneous auto-injector omeprazole 20 mg tablet,delayed 20 mg PO DAILY 3 months #90 tabs 12/07/23 03/13/25 Rx release amlodipine 5 mg tablet 5 mg PO DAILY #30 tabs 09/21/24 03/13/25 Rx trazodone 50 mg tablet 50 mg PO QHS PRN insomnia #30 tabs 01/11/25 03/13/25 Rx hydrocortisone acetate 30 mg 30 mg RECTAL DAILY 2 weeks #12 ea 04/02/25 Rx rectal suppository (Proctocort) Sleep Procedure A full CPAP polysomnogram using the [employer] multi-channel system recorded the standard physiologic parameters including EEG, EOG, submentalis EMG, anterior tibialis EMG, EKG, body position, nasal and oral airflow using nasal pressure sensor and thermistor. Respiratory parameters of chest and abdominal movements were recorded with Respiratory Inductance Plethysmography belts. Oxygen saturation was recorded by pulse oximetry. Video monitoring was also performed. Sleep stages, periodic limb movements, and EEG arousals were scored in 30 second epochs according to the criteria of the AASM Scoring Manual. The Apnea-Hypopnea Index was calculated using CMS guidelines for definition of hypopnea while scoring respiratory events. The patient was started on CPAP using a medium Dy[employer] Solo mask with and heated humidity, initial pressure was CPAP 4 cm, titrated to 5 cm, 6 cm, 7 cm, final pressure was 8 cm. He had improvement in his central apneas during the titration. At CPAP 8 cm, the patient spent 187.5 minutes in bed, 37.5 minutes awake, 118.5 minutes in non-REM and 31.5 minutes in REM. Sleep efficiency was 80%. The residual apnea-hypopnea index was 6.4. He had 7 central apneas and 23 hypopneas. The lowest saturation was 91%. He had supine REM at this pressure. He had no Alfredo-Valdovinos breathing during this CPAP titration. The optimal pressure is CPAP 8 cm. With regular treatment, his central apneas are expected to resolve which will lower the overall apnea-hypopnea index. Sleep Architecture The total recording time was 419.4 minutes. The total sleep time was 364.0 minutes. Sleep latency was 1.5 minutes. REM latency was 69.0 minutes. Sleep efficiency was 86.8%. The patient had 28 awakenings for an awakening index of 4.6. Wake after Sleep Onset time was 53.5 minutes. The patient spent 19.5 minutes, 5.4% of total sleep time in Stage N1. The patient spent 246.0 minutes, 67.6% in Stage N2. The patient spent 43.0 minutes, 11.8% in Stage N3. The patient spent 55.5 minutes, 15.2% in Stage REM. Respiratory Analysis The patient had 15 hypopneas, no obstructive apneas, no mixed apneas, and 33 central apneas for an overall Apnea Hypopnea Index of 7.9 events per hour. The REM Apnea Hypopnea Index was 1.1. The NREM Apnea Hypopnea Index was 9.1. The patient had a Central Apnea Hypopnea Index of 5.4. There were no Respiratory Effort Related Arousals. The Respiratory Disturbance Index is 11.9 events per hour. There was no evidence of Alfredo-Valdovinos Respirations. Arousals There were 107 total arousals for an arousal index of 17.6. There were 32 spontaneous arousals for an index of 5.3. There were 6 arousals due to respiratory events for an index of 1.0. There were 40 arousals due to periodic limb movements for an index of 6.6. There were 32 arousals due to isolated limb movements for an index of 5.3. Periodic Limb Movements The patient had 47 isolated limb movements with an index of 7.7. The patient had 118 periodic limb movements with index of 19.5. Patient had a total of 165 limb movements with a total limb movement index of 27.2. Oximetry Data The patient had an average oxygen saturation of 94.8% in sleep with a minimum oxygen saturation of 88% and a maximum oxygen saturation of 98%. The patient had 36 oxygen desaturations that were 4% or greater resulting in an Oxygen Desaturation Index of 5.9. The patient spent 0.5 minutes, 0.1% of total sleep time with an oxygen saturation below 88%. Snoring Profile During titration, snoring was eliminated. Cardiac Profile The EKG showed normal sinus rhythm. The patient had an average pulse rate of 53 bpm with a minimum pulse rate of 46 bpm and a maximum pulse rate of 90 bpm. No arrhythmias noted. EEG Profile Unremarkable, no evidence of seizures. Assessment and Plan Assessment and Plan (1) ETHAN (obstructive sleep apnea): Code(s): G47.33 - Obstructive sleep apnea (adult) (pediatric) Status: Acute Assessment and Plan: This full night CPAP titration on 03/13/2025 shows an optimal pressure of CPAP 8 cm using a medium Dykes and Paykel Solo nasal mask and and heated humidity. At CPAP 8 cm, the patient spent 187.5 minutes in bed, 37.5 minutes awake, 118.5 minutes in non-REM and 31.5 minutes in REM. Sleep efficiency was 80%. The residual apnea-hypopnea index was 6.4. He had 7 central apneas and 23 hypopneas. The lowest saturation was 91%. He had supine REM at this pressure. He had no Alfredo-Valdovinos breathing during this CPAP titration. The optimal pressure is CPAP 8 cm. With regular treatment, his central apneas are expected to resolve which will lower the overall apnea-hypopnea index. The patient should be prescribed this ResMed equipment as well as tubing, filters and reservoir. This should be used with all episodes of sleep. Compliance should be reviewed within 31-90 days of starting therapy for usage greater than 4 hours per night greater than 70% of the nights. The patient should be asked about symptoms such as excessive daytime sleepiness, quality of sleep, decreased nocturia, increased mental functioning such as memory, mood, and concentration. His central apnea hypopnea index was 5.4 during this CPAP titration. His echo on 02/23/2024 showed a normal EF 65-70%. He has had problems with sleep onset insomnia, and may benefit from CPAP desensitization. Clinical correlation is recommended. Data The data obtained during this sleep study is adequate for interpretation. Certification This sleep study has been reviewed by a board certified sleep medicine physician.
[2025-04-09 20:43] VITALS: BMI 28.5
== END | disposition home or self-care (01) ==
LOC: ANHCSM 07:55
PROVIDERS: PCP Family Medicine; Visit Provider Physician Assistant
DX: G47.33 Obstructive sleep apnea (adult) (pediatric) (principal)
CPT/HCPCS: 95811

== ENCOUNTER 2025-04-20 01:33 | Day surgery (SDC) | payer OTHER, SELFPAY ==
[2025-03-13 14:40] VITALS: BMI 28.6
[2025-04-11 10:28] VITALS: BMI 28.6
[2025-04-20 10:32] VITALS: BP 151/96; PULSE 70; RESP 19; TEMP 36.3; O2SAT 100
[2025-04-20] MEDS: LACTATED RINGERS 1,000 ML 150 ML IV CONT (10:42)
--- NOTE | 2025-04-20 11:10 | WPDANESEPPF ---
Anes - Initial Pre Proc Eval Procedure: Operation Date: 04/20/25 11:30 Proposed Procedures p EGD & Screening Colonoscopy - Michael Wood MD Date/Time: 04/20/25 11:10 Surgeon: Michael Wood MD Pre Op Diagnosis: Personal history of colon polyps, GERD Patient Data Age: 54 Gender: M Height: 1.8 m Weight: 85.9 kg Last Vital Signs Temp 36.3 C L 04/20/25 10:32 Pulse 70 04/20/25 10:32 Resp 19 04/20/25 10:32 BP 151/96 H 04/20/25 10:32 Pulse Ox 100 04/20/25 10:32 O2 Del Method Room Air 04/20/25 10:32 Allergies Allergy/AdvReac Type Severity Reaction Status Date / Time ranitidine (From Zantac) Allergy Intermediate Rash Verified 04/20/25 10:30 sulfamethoxazole (From AdvReac Intermediate facial Verified 04/20/25 10:30 Bactrim) swelling trimethoprim (From Bactrim) AdvReac Intermediate facial Verified 04/20/25 10:30 swelling Home Medications ?Medication ?Instructions ?Recorded ?Confirmed ?Type cholecalciferol (vitamin D3) 25 25 mcg PO DAILY 09/18/22 04/20/25 History mcg (1,000 unit) capsule ferrous sulfate 325 mg (65 mg 325 mg PO DAILY 09/18/22 04/20/25 History iron) tablet tadalafil 5 mg tablet 5 mg PO DAILY 09/18/22 04/17/25 History testosterone enanthate 50 mg/0.5 50 mg subcut WEEKLY 04/30/23 04/17/25 History mL subcutaneous auto-injector metoprolol succinate 25 mg 25 mg PO DAILY #90 tabs 04/17/25 04/20/25 Rx tablet,extended release 24 hr Patient hx anesthesia problems: none Family hx anesthesia problems: none Results Review: All pre-operative results and documents have been reviewed as part of the pre-operative evaluation. [facility] Past Medical History Medical History ETHAN (obstructive sleep apnea) Dyspepsia Low back pain Unknown status of immunity to COVID-19 virus Elevated blood pressure reading without diagnosis of hypertension Elevated blood pressure reading in office with diagnosis of hypertension Numbness and tingling in both hands Pleural effusion Leukocytopenia, unspecified Other fatigue Belching Bloating Adenomatous colon polyp Gastritis Colon cancer screening Chest tightness GERD without esophagitis Surgical History Surgical History No pertinent past surgical history Family History Family History Father Hypertension Mother No problems noted. Sibling Obesity Social History Social History Smoking status: Never smoker Second hand tobacco smoke exposure: No Alcohol intake: current Alcohol use details: 2-3 drinks Substance use: never Substance use type: does not use Do You Feel Safe in your Home?: Yes Lack of Transportation: No Lack of Food: Never True Current Housing: I Have Housing Concerned About Future Housing: No Difficulty Paying Gas/Electric Bills: No Difficulty Paying for Meds: No Currently Unemployed: No Education: Bachelor's Degree Difficulty w/ Childcare or Family Care: No Living arrangements: with family Additional living arrangements comments: and kids Occupation/Education: occupation Additional occupation/education comments: [email or web address] Gender identity (if verbalized by the patient): Male Sexual Orientation (if Verbalized by the Patient): Straight or Heterosexual Agree to blood products: Yes Anes - Eval Final PreProcedure Day of Procedure 04/20/25 11:10 Patient weight: overweight Heart: regular rate and rhythm Lungs: clear to auscultation Airway: Mallampati scale class II Neurological: alert and oriented Last oral intake: >/= 8 hours ASA classification: II Emergent: no Anesthetic plan: proceed Anesthesia type and monitoring: general GIVS and standard monitoring Results Review: All pre-operative results and documents have been reviewed as part of the pre-operative evaluation. Informed Consent: The patient's anesthetic plan and its attendant risks and benefits were discussed with the patient/family/POA. Questions were solicited and answers provided to the satisfaction of the patient/family/POA.
--- NOTE | 2025-04-20 11:13 | PM.HPGS ---
History of Present Illness History of Present Illness Consent: Risks, benefits, and alternatives have been discussed and questions answered. Patient agrees to proceed with procedure. Chief complaint: Personal history of colon polyps, GERD Narrative: Amauri Santos is a 54 year old male with gerd using omeprazole as needed, egd and colonoscopy 2019, mild gastritis in bx, also colon polyp Review of Systems Review of Systems: All systems reviewed & are unremarkable except as noted in HPI and below PMFSH Past Medical History Medical History ETHAN (obstructive sleep apnea) Dyspepsia Low back pain Unknown status of immunity to COVID-19 virus Elevated blood pressure reading without diagnosis of hypertension Elevated blood pressure reading in office with diagnosis of hypertension Numbness and tingling in both hands Pleural effusion Leukocytopenia, unspecified Other fatigue Belching Bloating Adenomatous colon polyp Gastritis Colon cancer screening Chest tightness GERD without esophagitis Surgical History Surgical History No pertinent past surgical history Family History Family History Father Hypertension Mother No problems noted. Sibling Obesity Social History Social History Smoking status: Never smoker Second hand tobacco smoke exposure: No Alcohol intake: current Alcohol use details: 2-3 drinks Substance use: never Substance use type: does not use Do You Feel Safe in your Home?: Yes Lack of Transportation: No Lack of Food: Never True Current Housing: I Have Housing Concerned About Future Housing: No Difficulty Paying Gas/Electric Bills: No Difficulty Paying for Meds: No Currently Unemployed: No Education: Bachelor's Degree Difficulty w/ Childcare or Family Care: No Living arrangements: with family Additional living arrangements comments: and kids Occupation/Education: occupation Additional occupation/education comments: [employer] Gender identity (if verbalized by the patient): Male Sexual Orientation (if Verbalized by the Patient): Straight or Heterosexual Agree to blood products: Yes Meds Home Medications and Allergies Home Medications ?Medication ?Instructions ?Recorded ?Confirmed ?Type cholecalciferol (vitamin D3) 25 25 mcg PO DAILY 09/18/22 04/20/25 History mcg (1,000 unit) capsule ferrous sulfate 325 mg (65 mg 325 mg PO DAILY 09/18/22 04/20/25 History iron) tablet tadalafil 5 mg tablet 5 mg PO DAILY 09/18/22 04/17/25 History testosterone enanthate 50 mg/0.5 50 mg subcut WEEKLY 04/30/23 04/17/25 History mL subcutaneous auto-injector metoprolol succinate 25 mg 25 mg PO DAILY #90 tabs 04/17/25 04/20/25 Rx tablet,extended release 24 hr Allergies Allergy/AdvReac Type Severity Reaction Status Date / Time ranitidine (From Zantac) Allergy Intermediate Rash Verified 04/20/25 10:30 sulfamethoxazole (From AdvReac Intermediate facial Verified 04/20/25 10:30 Bactrim) swelling trimethoprim (From Bactrim) AdvReac Intermediate facial Verified 04/20/25 10:30 swelling Vital Signs Vital Signs - 24 hr 04/20/25 10:32 Temperature 97.3 F L Pulse Rate 70 Respiratory Rate 19 Blood Pressure 151/96 H Pulse Oximetry 100 Oxygen Delivery Room Air Exam Const: General: comfortable and no acute distress HENMT: Face/Nose/Sinus: Normal nares present Eyes: General: appearance normal, both eyes and all related structures Neck: Neck: no JVD Resp: Auscultation: clear to auscultation bilaterally Cardio: Rate: regular rate Rhythm: regular rhythm GI: Inspection: non-distended GI Palp: Yes Soft to palpation Skin: General skin exam: normal color Extrem: General: normal to inspection Psych: Mental Status: mental status grossly normal Assessment and Plan Assessment and plan (1) GERD (gastroesophageal reflux disease): Qualifiers: Esophagitis presence: esophagitis presence not specified Qualified Code(s): K21.9 - Gastro-esophageal reflux disease without esophagitis Code(s): K21.9 - Gastro-esophageal reflux disease without esophagitis Status: Acute Assessment and Plan: egd (2) Adenomatous colon polyp: Code(s): D12.6 - Benign neoplasm of colon, unspecified Status: Acute Assessment and Plan: colonoscopy
--- NOTE | 2025-04-20 11:22 | S_PTH ---
PATIENT: Amauri Santos LOC: [facility]#:[id number] AGE/SX: 54/M ROOM: RE04/20/[address]: Michael Wood MD : 1970 BED: DIS: 04/20/2025 SPEC #: [id number] RECD: 04/20/25 13:06 STATUS: RODNEY REIbrahima #: [id number] CECILIO: 04/20/25 11:[address]: Michael Wood DEPT: [facility] Surgical RECD BY: Yazmin White ENTERED: 04/20/25 13:06 SP TYPE: Surgical OTHR DR: Melvin Perkins MD Tissues: A - Gastric Biopsy B - Colon Polypectomy C - Colon Polypectomy D - Colon Polypectomy Procedures: Hematoxylin and Eosin Stain Gross and Microscopic Level 4
--- NOTE | 2025-04-20 11:25 | SUR.OPER ---
EGD ended at 1121, Colon began at 1125
[2025-04-20 11:35] VITALS: BP 110/70; PULSE 61; RESP 15; O2SAT 96
[2025-04-20 11:45] VITALS: BP 128/74; PULSE 73; RESP 17; O2SAT 100
[2025-04-20 11:55] VITALS: BP 112/63; PULSE 63; RESP 17; O2SAT 100
== END 2025-04-20 12:09 | disposition home or self-care (01) ==
PROVIDERS: PCP Family Medicine; Visit Provider Internal Medicine Gastroenterology
PROC: 0DJ08ZZ Inspection of Upper Intestinal Tract, Via Natural or Artificial Opening Endoscopic (ICD-10-PCS; CPT 45378; principal; 2025-04-20 11:30)
DX: Z12.11 Encounter for screening for malignant neoplasm of colon (principal); D12.2 Benign neoplasm of ascending colon; D12.3 Benign neoplasm of transverse colon; D12.5 Benign neoplasm of sigmoid colon; K64.8 Other hemorrhoids; K21.00 Gastro-esophageal reflux disease with esophagitis, without bleeding; K31.7 Polyp of stomach and duodenum
CPT/HCPCS: 45385; 45380; 43239; 88305; J2704; J7120